=== PATIENT | male | born 1960 | race Caucasian/White ===

== ENCOUNTER 2019-10-01 06:05 | Inpatient (IN) | payer OTHER ==
[2019-09-28 13:05] VITALS: BMI 29.9
[2019-10-01] MEDS ORDERED: BENZOIN TINCTURE SWABSTICK TP ONE (07:09)
[2019-10-01] MEDS ORDERED: HEPARIN NA (PORCINE) 5,000 UNITS/ML 1ML VIAL ONE (07:09)
[2019-10-01] MEDS ORDERED: THROMBIN (BOVINE) 5,000 UNIT VIAL TP ONE ×2 (07:09→10:14)
[2019-10-01] MEDS ORDERED: DEXAMETHASONE SOD PHOSPHATE/PF 10 MG/ML SDV ONE (07:19)
[2019-10-01] MEDS ORDERED: BUPIVACAINE HCL/PF 0.5% (5 MG/ML) 30 ML VIAL IJ ONE (07:20)
[2019-10-01] MEDS ORDERED: PROPOFOL 20 ML ONE ×10 (07:21→11:05)
[2019-10-01] MEDS ORDERED: DEXAMETHASONE SOD PHOSPHATE 4 MG/1 ML VIAL ONE ×2 (07:21→11:00)
[2019-10-01] MEDS ORDERED: fentaNYL CITRATE 250 MCG/5 ML VIAL ONE (07:21)
[2019-10-01] MEDS ORDERED: LIDOCAINE HCL/PF 2% SDV 5ML VIAL ONE (07:21)
[2019-10-01] MEDS ORDERED: LIDOCAINE HCL 4% TOPICAL SOLN (50 ML/BOTTLE) ONE (07:21)
[2019-10-01] MEDS ORDERED: ONDANSETRON 4 MG/2 ML VIAL ONE ×2 (07:21→11:00)
[2019-10-01] MEDS ORDERED: SUCCINYLCHOLINE CHLORIDE 200 MG/10 ML SYRINGE ONE ×2 (07:21→11:04)
[2019-10-01] MEDS ORDERED: ROCURONIUM BROMIDE 50 MG/5 ML SYRINGE ONE ×2 (07:22→11:04)
[2019-10-01] MEDS ORDERED: MIDAZOLAM HCL 2 MG/2 ML SINGLE DOSE VIAL ONE ×4 (07:22→07:23)
[2019-10-01] MEDS ORDERED: EPHEDRINE SULFATE/0.9% NACL/PF 50 MG/10 ML SYRINGE NR ONE (07:24)
[2019-10-01] MEDS ORDERED: BUPIVACAINE LIPOSOME/PF (EXPAREL) 266 MG/20 ML VIAL ONE (08:29)
[2019-10-01] MEDS ORDERED: VANCOMYCIN 1,000 MG VIAL (RESTRICTED TO ID ONLY) IVPB ONE (08:50)
[2019-10-01] MEDS ORDERED: ceFAZolin 2 GRAM PREMIX BAG IVPB ONE (09:15)
[2019-10-01] MEDS ORDERED: NEOSTIGMINE METHYLSULFATE 0.5 MG/1 ML - 10 ML MDV ONE (10:09)
[2019-10-01] MEDS ORDERED: GLYCOPYRROLATE 0.2 MG/1 ML VIAL ONE (10:14)
[2019-10-01] MEDS ORDERED: SODIUM CHLORIDE 0.9% P/F 10 ML VIAL IJ ONE (10:15)
[2019-10-01] MEDS ORDERED: TRANEXAMIC ACID 1000 MG/10 ML VIAL ONE ×2 (10:59→11:00)
--- NOTE | 2019-10-01 12:07 | PN ---
Progress Note (short form) - Note Progress Note: 59M s/p L4 bilateral laminectomies, bilateral L4/L5 facetectomies, L4-L5 posterior instrumented spinal fusion POD #0. -Admit to ICU post-op. -Pain control: NO NSAID's; patient received pre-op TLIP block w/Exparel; OK to use JOB CAPTAIN if needed; transition to oral analgesia post-op. -DVT PPx: -Mechanical only: BRUCE's, SCD's. -Chemical: None. -Incentive spirometry q15 min. -NPO until flatus. -Feranndez care; d/c when ambulating. -Post-op Ancef x 3 doses. -PT/OT/Rehab, OOB. -WBAT B/L LE. -No bending, lifting (>5 lbs), or twisting for 9-12 months. -Care per ICU & medical hospitalist teams. -Discharge planning: f/u 7-10 days after rehab discharge at [facility] office; call for appointment; . -Will follow. Duane Mcgowan MD (Orthopaedic Surgery).
--- NOTE | 2019-10-01 12:09 | OP ---
Operative Note - Note: Operative Date: 10/01/19 Pre-Operative Diagnosis: L4-L5 intervertebral disc disorder with associated spondylosis, spinal stenosis and segmental instability Operation: 1. L4 bilateral laminectomy. 2. L4-L5 bilateral facetectomies. 3. L4-L5 posterior instrumentation. 4. L4-L5 posterolateral arthrodesis. 5. Bone autograft. 6. Bone allograft. 7. Stem cell aspirate autograft 8. Complex wound closure (15cm) Post-Operative Diagnosis: Same as Pre-op Surgeon: Duane Mcgowan Retail Director: Merlin Mcgowan Anesthesiologist/ENVIRONMENTAL SERVICES TECHNICIAN: Eliezer Krause Anesthesia: General Specimens Removed: None Estimated Blood Loss (mls): 300 Blood Volume Replaced (mls): 125 (Cell Saver) Fluid Volume Replaced (mls): 1,000 (Crystalloid) Operative Report Dictated: Yes
[2019-10-01] MEDS ORDERED: ONDANSETRON 4 MG/2 ML VIAL IVPUSH PRN ×2 (12:14→12:22)
[2019-10-01] MEDS ORDERED: LACTATED RINGERS SOLUTION 1,000 ML IV SCH ×2 (12:15→12:30)
--- NOTE | 2019-10-01 12:16 | OP ---
DATE OF OPERATION: DATE OF DICTATION: 10/01/2019 SURGEON: Duane Mcgowan MD SENIOR SVP: Merlin Mcgowan MD PREOPERATIVE DIAGNOSIS: Spinal stenosis and segmental instability L4, 5, lumbar spine. POSTOPERATIVE DIAGNOSIS: L4, 5 spinal stenosis with segmental instability and facet arthropathy. ANESTHESIA: General. ANTIBIOTICS GIVEN: 2 g Ancef, 1 g vancomycin. OPERATIONS PERFORMED: 1. Laminectomy L4 with undercutting facetectomy. 2. Pedicle screw instrumentation L4, 5. 3. Posterolateral arthrodesis L4, 5. 4. Use of biplanar fluoroscopy, intraoperative neuromonitoring. 5. Bone marrow aspirate harvested from left posterior ilium. BLOOD LOSS: 200 mL. ROCEDURE: Patient correctly identified. Brought to the operating room. Placed prone on a Quinten table. Under general anesthesia, all bony points padded. I particularly paid attention to position of table was 6 degrees antiTrendelenburg. In the prone position, once the patient had been prepped, draped in the routine manner with Betadine scrub solution, wiped off with alcohol, DuraPrep applied, and a window drape applied, using a lateral fluoroscopic Xray to isolate the L4, 5 level this for the purpose of correct skin positioning, the dissection was taken through the skin from the tip of the spinous process of L2 to the tip of spinous process of S1. This because of his large size. The dissection was taken to the tip of the spinous process, down the lamina. The fascia was opened. The L4 lamina was identified. Original discussion about an L1-S1 decompression fusion was futile based on the fact that the MRI imaging revealed capacious canal. All disk heights were reasonably well maintained. There were no significant facet arthropathic changes on the MRI, but clearly once we had dissected and exposed the L3-4, 4-5, and 5-1 levels, there were no osteophytes or any malalignment seen at L3-4 or 5-1, but 4-5 was a different story. There was complete facet vertebral subluxation secondary to osteophyte formation. The interspinous ligaments were resected at L3-4 and 4- 5. The lamina of L4 was completely resected. We utilized all the bone from the posterior elements. This posterior bone was morselized in a Midas Owen mill and used for the posterolateral arthrodesis. At that point, the left plane between the subcutaneous fat and fascia was opened. The developed area enabled insertion of a Jamshidi needle into the left ilium, 60 mL of marrow was removed. This spun down from the CD34 cell. Pedicle screws at L4 and 5 were inserted using anatomical guidelines and biplanar fluoroscopy, 4.5 drill was utilized. Each pedicle drill hole was palpated with a ball tip feeler. The screws measured 6 x 45 mm. All screws except the left L5 revealed the presence of normal, good stimulation to each screw, but at L5 initially started with 6, which is 4 mA below what is acceptable, and for that reason, the screw was redirected more laterally and the readings were improved appropriately. Two 40- mm rods were applied to the tulips of the screw heads. They were tightened with the appropriate caps and the final torque device utilized to tighten the caps. The muscle was retracted off the intertransverse plane where the bone had been exposed off the transverse processes left and right-hand side, and this was packed with autologous bone, which was mixed with some BMAC stem cell fluid to bring about stem cell autologous bone grafting. No complications. Muscle was appropriately trimmed with [place] scissors. Closure was a complex closure as follows: Muscle 1 Vicryl, fascia 1 Vicryl, subcutaneous 1 and 2-0 Vicryl in 2 layers, skin 3-0 Monocryl with Steri-Strips. No drainage utilized. The wound was bone dry at the time we left the operating room and closed the sinus. Operation tolerated well. No complications. MD SHIVA Taylor/[id number] MTDD
[2019-10-01] MEDS ORDERED: ACETAMINOPHEN 1000 MG/100 ML VIAL (NON FORMULARY) IVPB ONE (12:33)
[2019-10-01] MEDS ORDERED: HYDROmorphone HCl 2 MG/ML VIAL ONE (13:10)
[2019-10-01] MEDS ORDERED: HYDROmorphone HCl 2 MG/ML VIAL IVPUSH ONE ×2 (13:15→13:28)
[2019-10-01] MEDS ORDERED: HYDROmorphone HCL CARPU-JECT 2 MG/1 ML DISP.SYRIN IVPUSH ONE (13:22)
[2019-10-01] MEDS ORDERED: diazePAM CARPU-JECT 10 MG/2 ML DISP.SYRIN ONE (13:47)
[2019-10-01] MEDS ORDERED: ceFAZolin SODIUM 1 GM VIAL ONE (13:51)
[2019-10-01] MEDS ORDERED: diazePAM CARPU-JECT 10 MG/2 ML DISP.SYRIN IVPUSH ONE (13:56)
[2019-10-01] MEDS ORDERED: ceFAZolin SODIUM 1 GM VIAL IVPB ONE (13:57)
[2019-10-01] MEDS ORDERED: ceFAZolin 2 GRAM PREMIX BAG IVPB SCH (15:00)
--- NOTE | 2019-10-01 16:06 | CONSULT ---
Consultation: REQUESTING PROVIDER: CONSULT REQUEST: ICU HISTORY OF PRESENT ILLNESS: Dangelo Carlisle is a 59yM w PMHx CAD s/p 3 stents presenting from OR with Dr Mcgowan s/p L4 bilateral laminectomies, bilateral L4/L5 facetectomies, L4-L5 posterior instrumented spinal fusion POD #0. Complaining of back pain /. Denies chest pain, SOB. REVIEW OF SYSTEMS: CONSTITUTIONAL: Absent: fever, chills, diaphoresis, malaise HEENT: Absent: rhinorrhea, nasal congestion, throat pain, ear pain, eye pain CARDIOVASCULAR: Absent: chest pain, syncope, palpitations, irregular heart rate, lightheadedness RESPIRATORY: Absent: cough, shortness of breath, orthopnea, wheezing GASTROINTESTINAL: Absent: abdominal pain, abdominal distension, nausea, vomiting GENITOURINARY: Absent: dysuria, frequency, urgency, hesitancy MUSCULOSKELETAL: + back pain Absent: myalgia SKIN: Absent: rash, itching HEMATOLOGIC/IMMUNOLOGIC: Absent: easy bleeding, easy bruising ENDOCRINE: Absent: heat intolerance, cold intolerance NEUROLOGIC: Absent: headache, focal weakness or paresthesias, dizziness, seizure, mental status changes PSYCHIATRIC: Absent: anxiety, depression, suicidal or homicidal ideation PHYSICAL EXAMINATION Vital Signs - 24 hr 10/01/19 10/01/19 10/01/19 06:36 11:54 12:10 Temperature 98.2 F 98.2 F Pulse Rate 62 76 67 Respiratory 18 10 16 Rate Blood Pressure 103/63 83/59 L 97/56 L O2 Sat by Pulse 99 100 Oximetry (%) 10/01/19 10/01/19 10/01/19 12:25 12:40 12:55 Temperature Pulse Rate 77 73 72 Respiratory 19 11 13 Rate Blood Pressure 93/55 L 97/52 L 93/56 L O2 Sat by Pulse 100 100 100 Oximetry (%) 10/01/19 10/01/19 10/01/19 13:10 13:25 13:40 Temperature Pulse Rate 76 63 72 Respiratory 16 12 14 Rate Blood Pressure 93/57 L 93/57 L 91/53 L O2 Sat by Pulse 100 100 100 Oximetry (%) 10/01/19 10/01/19 10/01/19 13:50 13:55 14:05 Temperature 97.9 F Pulse Rate 75 74 74 Respiratory 14 12 12 Rate Blood Pressure 91/53 L 90/55 L 89/52 L O2 Sat by Pulse 100 100 98 Oximetry (%) 10/01/19 10/01/19 14:25 14:35 Temperature 97.9 F 98.4 F Pulse Rate 71 84 Respiratory 16 16 Rate Blood Pressure 94/62 102/68 O2 Sat by Pulse 98 100 Oximetry (%) GENERAL: Awake, alert, and fully oriented, in no acute distress. HEAD: Normal with no signs of trauma. LUNGS: Breath sounds equal, clear to auscultation bilaterally. No wheezes, and no crackles. No accessory muscle use. HEART: Regular rate and rhythm, normal S1 and S2 without murmur, rub or gallop. ABDOMEN: Soft, nontender, not distended, normoactive bowel sounds, no guarding, no rebound, no masses. No hepatomegaly or splenomegaly. MUSCULOSKELETAL: Lumbar-sacral wound non tender, covered with dressing. LOWER EXTREMITIES: 2+ pulses, warm. No peripheral edema. NEUROLOGICAL: AOx3. Normal speech. Laboratory Results - last 24 hr 10/01/19 10/01/19 06:17 07:20 Blood Type A POSITIVE A POSITIVE Antibody Screen Negative Active Medications Generic Name Dose Route Start Last Admin Trade Name Freq PRN Reason Stop Dose Admin Acetaminophen 1,000 mg 10/01/19 18:00 Ofirmev Injection - IVPB 10/02/19 10:01 Q8H [facility] Atorvastatin Calcium 20 mg 10/01/19 22:00 Lipitor - PO HS [facility] Cefazolin Sodium/Dextrose 2 gm 10/01/19 19:30 Ancef 2 Gm Premixed Ivpb - IVPB 10/02/19 07:31 Q6H [facility] Diazepam 10 mg 10/01/19 13:16 Valium - PO 10/04/19 13:18 Q6H PRN MUSCLE SPASMS Duloxetine HCl 60 mg 10/02/19 10:00 Cymbalta - PO DAILY [facility] Fentanyl 50 mcg 10/01/19 12:22 Sublimaze Injection - IVPUSH [id number] PRN PAIN-PACU ORDER X 4 DOSES ONLY Furosemide 20 mg 10/02/19 10:00 Lasix - PO DAILY [facility] Gabapentin 800 mg 10/01/19 14:00 Neurontin - PO TID [facility] Lactated Ringer's 1,000 mls @ 125 mls/hr 10/01/19 12:15 10/01/19 15:19 Lactated Ringers Solution IV 125 mls/hr ASDIR [facility] Administration Lactated Ringer's 1,000 mls @ 125 mls/hr 10/01/19 12:30 10/01/19 15:20 Lactated Ringers Solution IV Not Given ASDIR [facility] Losartan Potassium 25 mg 10/01/19 22:00 Cozaar - PO HS [facility] Metoprolol Tartrate 25 mg 10/01/19 22:00 Lopressor - PO BID [facility] Ondansetron HCl 4 mg 10/01/19 12:14 Zofran Injection IVPUSH Q6H PRN NAUSEA AND/OR VOMITING Ondansetron HCl 4 mg 10/01/19 12:22 Zofran Injection IVPUSH Q6H PRN NAUSEA AND/OR VOMITING Oxycodone HCl 5 mg 10/01/19 16:01 Roxicodone - PO Q4H PRN PAIN LEVEL 7 - 10 Spironolactone 25 mg 10/02/19 10:00 Aldactone - PO DAILY [facility] Ticagrelor 90 mg 10/01/19 22:00 Brilinta - PO BID [facility] Tramadol HCl 50 mg 10/01/19 12:22 Ultram - PO Q3H PRN PAIN LEVEL 1-5 ASSESSMENT/PLAN: 59yM w PMHx CAD s/p 3 stents presenting from OR with Dr Mcgowan s/p L4 bilateral laminectomies, bilateral L4/L5 facetectomies, L4-L5 posterior instrumented spinal fusion POD #0 Ortho - L4 bilateral laminectomies, bilateral L4/L5 facetectomies, L4-L5 posterior instrumented spinal fusion - pending post-op lumbar/sacral XR - PT - WBAT B/L LE. No bending, lifting (>5 lbs), or twisting for 9-12 months. - appreciate ortho recs Neuro - AOx3 - pain control : tylenol, oxycodone, valium, gabapentin, tramadol. No NSAIDs, consider SLOT FLOORPERSON if uncontrolled - nausea: zofran PRN Cards - hx CAD - restarted Lasix, Losartan, Metoprolol, Aldactone, Ticagrelor - DVT ppx Pulm - on 2L NC, wean as tolerated - incentive spirometry GI - NPO - soft diet as tolerated after flatus - IV fluids - I/O Endo - no active issues ID - afebrile, no active issues - ancef x3 post-op Psych - continue duloxetine FEN - LR @ 125mL/hr - no electrolyte disturbances - soft diet as tolerated PPX - SCDs - no GI ppx Dispo - ICU Visit type - Emergency Visit Emergency Visit: Yes ED Registration Date: 10/01/19 Care time: The patient presented to the Emergency Department on the above date and was hospitalized for further evaluation of their emergent condition. - New Patient This patient is new to me today: Yes Date on this admission: 10/01/19 - Critical Care Critical Care patient: Yes Total Critical Care Time (in minutes): 35 Critical Care Statement: The care of this patient involved high complexity decision making to prevent further life threatening deterioration of the patient 's condition and/or to evaluate & treat vital organ system(s) failure or risk of failure. ATTENDING PHYSICIAN STATEMENT I saw and evaluated the patient. I reviewed the resident's note and discussed the case with the resident. I agree with the resident's findings and plan as documented. SUBJECTIVE: OBJECTIVE: ASSESSMENT AND PLAN:
[2019-10-01] MEDS: oxyCODONE HCL 5 MG TABLET PO PRN ×2 (16:09→22:00)
[2019-10-01] MEDS: GABAPENTIN 400 MG CAPSULE (FP) PO SCH ×2 (17:42→21:59)
[2019-10-01] MEDS: ACETAMINOPHEN 1000 MG/100 ML VIAL (NON FORMULARY) IVPB SCH (17:53)
[2019-10-01] MEDS: traMADol HCL 50 MG TABLET PO PRN (20:01)
[2019-10-01] MEDS: ceFAZolin 2 GRAM PREMIX BAG IVPB SCH (20:01)
[2019-10-01] MEDS: METOPROLOL TARTRATE 25 MG TABLET (FP) PO SCH (21:58)
[2019-10-01] MEDS: ATORVASTATIN CA 20 MG TABLET (FP) PO SCH (21:58)
[2019-10-01] MEDS: LOSARTAN POTASSIUM 25 MG TABLET PO SCH (21:58)
[2019-10-01] MEDS: TICAGRELOR 90 MG TABLET PO SCH (21:58)
[2019-10-01] MEDS: diazePAM 5 MG TABLET PO PRN (22:01)
[2019-10-02] MEDS: ceFAZolin 2 GRAM PREMIX BAG IVPB SCH ×2 (00:42→07:03)
[2019-10-02] MEDS: ACETAMINOPHEN 1000 MG/100 ML VIAL (NON FORMULARY) IVPB SCH ×2 (01:45→09:42)
[2019-10-02] MEDS: oxyCODONE HCL 5 MG TABLET PO PRN ×5 (02:04→21:12)
[2019-10-02] MEDS: GABAPENTIN 400 MG CAPSULE (FP) PO SCH ×3 (06:01→21:12)
[2019-10-02] MEDS: diazePAM 5 MG TABLET PO PRN ×3 (06:11→17:50)
[2019-10-02 06:21] LABS: HEMOGLOBIN 12.1 GM/dL (11.7-16.9); MCH 30.7 pg (25.7-33.7); MCHC 34.4 g/dl (32.0-35.9); MEAN PLT VOLUME 7.3 fl (7.5-11.1); PLATELET COUNT 213 K/MM3 (134-434); RBC 3.93 M/mm3 (4.00-5.60); RDW 13.6 % (11.9-15.9); WHITE BLOOD COUNT 17.7 K/mm3 (4.0-10.0)
[2019-10-02 06:56] LABS: ALBUMIN 3.2 g/dl (3.4-5.0); BILIRUBIN,TOTAL 0.5 mg/dL (0.2-1); BLOOD UREA NITROGEN 15.1 mg/dL (7-18); CALCIUM 8.3 mg/dL (8.5-10.1); PHOSPHOROUS 3.3 mg/dL (2.5-4.9); POTASSIUM 4.9 mmol/L (3.5-5.1); TOT PROT 5.7 g/dl (6.4-8.2)
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
[2019-10-02] MEDS: METOPROLOL TARTRATE 25 MG TABLET (FP) PO SCH ×2 (09:18→21:11)
[2019-10-02] MEDS ORDERED: PT OWN MED DRAWER 7, Y5N ONE (09:24)
[2019-10-02] MEDS: TICAGRELOR 90 MG TABLET PO SCH ×2 (09:25→21:14)
[2019-10-02] MEDS ORDERED: FUROSEMIDE 20 MG TABLET (FP) PO SCH (10:00)
[2019-10-02] MEDS ORDERED: DULoxetine HCL 30 MG CAPSULE.DR PO SCH (10:00)
[2019-10-02] MEDS ORDERED: SPIRONOLACTONE 25 MG TABLET (FP) PO SCH (10:00)
--- NOTE | 2019-10-02 11:27 | PN ---
Teaching Attending Note Name of Resident: Norm Gómez ATTENDING PHYSICIAN STATEMENT I saw and evaluated the patient. I reviewed the resident's note and discussed the case with the resident. I agree with the resident's findings and plan as documented. SUBJECTIVE: Patient seen and examined in the ICU. Post-op pain: 07/07. No CP or SOB. Intake & Output 09/30/19 09/30/19 10/01/19 10/02/19 00:59 23:59 23:59 23:59 Intake Total 1975 925 Output Total 1000 1800 Balance 975 -875 Weight 240 lb 266 lb 12.8 oz Last Vital Signs Temp Pulse Resp BP Pulse Ox 98.1 F 64 10 97/66 100 10/02/19 06:00 10/02/19 06:00 10/02/19 09:00 10/02/19 06:00 10/02/19 09:00 Active Medications Atorvastatin Calcium (Lipitor -) 20 mg PO [facility] Last Admin: 10/01/19 21:58 Dose: 20 mg Diazepam (Valium -) 10 mg PO Q6H PRN PRN Reason: MUSCLE SPASMS Stop: 10/04/19 13:18 Last Admin: 10/02/19 06:11 Dose: 10 mg Duloxetine HCl (Cymbalta -) 60 mg PO DAILY [facility] Last Admin: 10/02/19 09:18 Dose: 60 mg Fentanyl (Sublimaze Injection -) 50 mcg IVPUSH [id number] PRN PRN Reason: PAIN-PACU ORDER X 4 DOSES ONLY Furosemide (Lasix -) 20 mg PO DAILY [facility] Last Admin: 10/02/19 09:18 Dose: 20 mg Gabapentin (Neurontin -) 800 mg PO TID [facility] Last Admin: 10/02/19 06:01 Dose: 800 mg Lactated Ringer's (Lactated Ringers Solution) 1,000 mls @ 125 mls/hr IV ASDIR [facility] Last Admin: 10/01/19 15:19 Dose: 125 mls/hr Lactated Ringer's (Lactated Ringers Solution) 1,000 mls @ 125 mls/hr IV ASDIR [facility] Last Admin: 10/01/19 15:20 Dose: Not Given Losartan Potassium (Cozaar -) 25 mg PO HS [facility] Last Admin: 10/01/19 21:58 Dose: 25 mg Metoprolol Tartrate (Lopressor -) 25 mg PO BID [facility] Last Admin: 10/02/19 09:18 Dose: 25 mg Ondansetron HCl (Zofran Injection) 4 mg IVPUSH Q6H PRN PRN Reason: NAUSEA AND/OR VOMITING Ondansetron HCl (Zofran Injection) 4 mg IVPUSH Q6H PRN PRN Reason: NAUSEA AND/OR VOMITING Oxycodone HCl (Roxicodone -) 5 mg PO Q4H PRN PRN Reason: PAIN LEVEL 7 - 10 Last Admin: 10/02/19 06:02 Dose: 5 mg Spironolactone (Aldactone -) 25 mg PO DAILY [facility] Last Admin: 10/02/19 09:18 Dose: 25 mg Ticagrelor (Brilinta -) 90 mg PO BID [facility] Last Admin: 10/02/19 09:25 Dose: 90 mg Tramadol HCl (Ultram -) 50 mg PO Q3H PRN PRN Reason: PAIN LEVEL 1-5 Last Admin: 10/01/19 20:01 Dose: 50 mg GENERAL: Awake, alert, and fully oriented, in no acute distress. HEAD: Normal with no signs of trauma. LUNGS: Breath sounds equal, clear to auscultation bilaterally. No wheezes, and no crackles. No accessory muscle use. HEART: Regular rate and rhythm, normal S1 and S2 without murmur, rub or gallop. ABDOMEN: Soft, nontender, not distended, normoactive bowel sounds, no guarding, no rebound, no masses. No hepatomegaly or splenomegaly. MUSCULOSKELETAL: Lumbar-sacral wound non tender, covered with dressing. LOWER EXTREMITIES: 2+ pulses, warm. No peripheral edema. NEUROLOGICAL: AOx3. Normal speech. Laboratory Results - last 24 hr 10/02/19 10/02/19 05:50 05:50 WBC 17.7 H RBC 3.93 L Hgb 12.1 Hct 35.0 L MCV 89.0 MCH 30.7 MCHC 34.4 RDW 13.6 Plt Count 213 MPV 7.3 L Sodium 139 Potassium 4.9 Chloride 105 Carbon Dioxide 31 Anion Gap 3 L BUN 15.1 Creatinine 1.0 Est GFR (CKD-EPI)AfAm 95.06 Est GFR (CKD-EPI)NonAf 82.02 Random Glucose 100 Calcium 8.3 L Phosphorus 3.3 Magnesium 2.0 Total Bilirubin 0.5 AST 25 ALT 29 Alkaline Phosphatase 55 Total Protein 5.7 L Albumin 3.2 L ASSESSMENT/PLAN: POD #1: 1. L4 bilateral laminectomy. 2. L4-L5 bilateral facetectomies. 3. L4-L5 posterior instrumentation. 4. L4-L5 posterolateral arthrodesis. 5. Bone autograft. 6. Bone allograft. 7. Stem cell aspirate autograft 8. Complex wound closure (15cm) CAD S/P PCI x 3 PO as tolerated O2 as needed Incentive Spirometry Pain control PT / mobility per Orthopedics Restart Cardiac meds VTE prophylaxis Dr Greene
[2019-10-02] MEDS ORDERED: LACTATED RINGERS SOLUTION 1,000 ML IV SCH (11:41)
--- NOTE | 2019-10-02 11:48 | PN ---
Physical Exam: SUBJECTIVE: Patient seen and examined at bedside this morning. States that his pain is well controlled after morning medications. He is in good spirits. He is passing gas and belching, able to tolerate diet. No bowel movements as of this morning. No events overnight. OBJECTIVE: Vital Signs Period Temp Pulse Resp BP Sys/Sharma Pulse Ox Last 24 Hr 97.9 F-98.6 F 63-84 10-20 83-120/52-71 98-100 GENERAL: The patient is awake, alert, and fully oriented, in no acute distress. HEAD: Normal with no signs of trauma. EYES: PERRL, EOMI ENT: moist mucous membranes NECK: Trachea midline, full range of motion, supple. LUNGS: Breath sounds equal, clear to auscultation bilaterally, no wheezes, no crackles, no accessory muscle use. HEART: Regular rate and rhythm, S1, S2 without murmur, rub or gallop. ABDOMEN: Soft, nontender, nondistended, normoactive bowel sounds, no guarding EXTREMITIES: 2+ pulses, warm, well-perfused, no edema. NEUROLOGICAL: Cranial nerves II through XII grossly intact. Sensation grossly normal throughout. Normal speech, gait not observed. PSYCH: Normal mood, normal affect. SKIN: Warm, dry, normal turgor, no rashes or lesions noted Laboratory Results - last 24 hr 10/02/19 10/02/19 05:50 05:50 WBC 17.7 H RBC 3.93 L Hgb 12.1 Hct 35.0 L MCV 89.0 MCH 30.7 MCHC 34.4 RDW 13.6 Plt Count 213 MPV 7.3 L Sodium 139 Potassium 4.9 Chloride 105 Carbon Dioxide 31 Anion Gap 3 L BUN 15.1 Creatinine 1.0 Est GFR (CKD-EPI)AfAm 95.06 Est GFR (CKD-EPI)NonAf 82.02 Random Glucose 100 Calcium 8.3 L Phosphorus 3.3 Magnesium 2.0 Total Bilirubin 0.5 AST 25 ALT 29 Alkaline Phosphatase 55 Total Protein 5.7 L Albumin 3.2 L Active Medications Generic Name Dose Route Start Last Admin Trade Name Freq PRN Reason Stop Dose Admin Atorvastatin Calcium 20 mg 10/01/19 22:00 10/01/19 21:58 Lipitor - PO 20 mg HS CIRA Administration Diazepam 10 mg 10/01/19 13:16 10/02/19 11:37 Valium - PO 10/04/19 13:18 10 mg Q6H PRN Administration MUSCLE SPASMS Duloxetine HCl 60 mg 10/02/19 10:00 10/02/19 09:18 Cymbalta - PO 60 mg DAILY CIRA Administration Fentanyl 50 mcg 10/01/19 12:22 Sublimaze Injection - IVPUSH [id number] PRN PAIN-PACU ORDER X 4 DOSES ONLY Furosemide 20 mg 10/02/19 10:00 10/02/19 09:18 Lasix - PO 20 mg DAILY CIRA Administration Gabapentin 800 mg 10/01/19 14:00 10/02/19 06:01 Neurontin - PO 800 mg TID CIRA Administration Lactated Ringer's 1,000 mls @ 125 mls/hr 10/01/19 12:15 10/01/19 15:19 Lactated Ringers Solution IV 125 mls/hr ASDIR CIRA Administration Lactated Ringer's 1,000 mls @ 75 mls/hr 10/02/19 11:41 Lactated Ringers Solution IV ASDIR CIRA Losartan Potassium 25 mg 10/01/19 22:00 10/01/19 21:58 Cozaar - PO 25 mg HS CIRA Administration Metoprolol Tartrate 25 mg 10/01/19 22:00 10/02/19 09:18 Lopressor - PO 25 mg BID CIRA Administration Ondansetron HCl 4 mg 10/01/19 12:14 Zofran Injection IVPUSH Q6H PRN NAUSEA AND/OR VOMITING Ondansetron HCl 4 mg 10/01/19 12:22 Zofran Injection IVPUSH Q6H PRN NAUSEA AND/OR VOMITING Oxycodone HCl 5 mg 10/01/19 16:01 10/02/19 11:38 Roxicodone - PO 5 mg Q4H PRN Administration PAIN LEVEL 7 - 10 Spironolactone 25 mg 10/02/19 10:00 10/02/19 09:18 Aldactone - PO 25 mg DAILY CIRA Administration Ticagrelor 90 mg 10/01/19 22:00 10/02/19 09:25 Brilinta - PO 90 mg BID CIRA Administration Tramadol HCl 50 mg 10/01/19 12:22 10/01/19 20:01 Ultram - PO 50 mg Q3H PRN Administration PAIN LEVEL 1-5 ASSESSMENT/PLAN: 59 y/o/m with PMHx of CAD s/p 3 stents presenting from OR with Dr Mcgowan s/p L4 bilateral laminectomies, bilateral L4/L5 facetectomies, L4-L5 posterior instrumented spinal fusion, POD #1. #Ortho - post-op lumbar/sacral XR completed, pending read - PT consulted - WBAT B/L LE. No bending, lifting (>5 lbs), or twisting for 9-12 months - appreciate ortho recs #Neuro - AOx3 - pain control : tylenol, oxycodone, valium, gabapentin, tramadol. No NSAIDs, consider [employer] if uncontrolled - nausea: zofran PRN #Cards - hx CAD s/p 3 stents - restarted Lasix, Losartan, Metoprolol, Aldactone, Ticagrelor #Pulm - on 2L NC, wean as tolerated - encourage incentive spirometry #GI - advance diet as tolerated, passing gas # - IV fluids - I/Os #Endo - no active issues #ID - afebrile, no active issues - ancef x3 post-op given #Psych - continue duloxetine #FEN - LR @ 75mL/hr. Patient tolerating diet well, may D/C fluids if ok with Dr. Mcgowan - no electrolyte disturbances - advance diet as tolerated #PPX - SCDs - no GI ppx #Dispo - Patient stable for transfer to floors. Will speak with Dr. Mcgowan before transferring patient. Visit type - Emergency Visit Emergency Visit: No - New Patient This patient is new to me today: Yes Date on this admission: 10/02/19 - Critical Care Critical Care patient: Yes Total Critical Care Time (in minutes): 36 Critical Care Statement: The care of this patient involved high complexity decision making to prevent further life threatening deterioration of the patient 's condition and/or to evaluate & treat vital organ system(s) failure or risk of failure. ATTENDING PHYSICIAN STATEMENT I saw and evaluated the patient. I reviewed the resident's note and discussed the case with the resident. I agree with the resident's findings and plan as documented. SUBJECTIVE: OBJECTIVE: ASSESSMENT AND PLAN:
--- NOTE | 2019-10-02 12:24 | PN ---
Teaching Attending Note Name of Resident: Lorin Castano ATTENDING PHYSICIAN STATEMENT I saw and evaluated the patient. I reviewed the resident's note and discussed the case with the resident. I agree with the resident's findings and plan as documented with exceptions below. SUBJECTIVE: 59 yom with PMHx of CAD s/p LA/PCI x3 in 09/2018, Depression, low back pain since reported accident in 12/2017, s/p elective L spine surgery with Dr. Mcgowan on 10/01/2019. patient reports pain with movements currently but contolled with medications. Has been passing flatus and tolerating diet well. No chest pain or complaints otherwise. OBJECTIVE: Vital Signs Period Temp Pulse Resp BP Sys/Sharma Pulse Ox Last 24 Hr 97.9 F-98.6 F 63-84 10-20 89-125/52-74 98-100 Intake & Output 09/30/19 09/30/19 10/01/19 10/02/19 00:59 23:59 23:59 23:59 Intake Total 1975 1495 Output Total 1000 1800 Balance 975 -305 Weight 240 lb 266 lb 12.8 oz GENERAL: Awake, alert, and fully oriented, in no acute distress. HEAD: Normal with no signs of trauma. EYES: Pupils equal, round and reactive to light, extraocular movements intact, sclera anicteric, conjunctiva clear. No lid lag. EARS, NOSE, THROAT: Ears normal, nares patent, oropharynx clear without exudates. Moist mucous membranes. NECK: Normal range of motion, supple, no JVD LUNGS: Breath sounds equal, clear to auscultation bilaterally. No wheezes, and no crackles. No accessory muscle use. HEART: Regular rate and rhythm, normal S1 and S2 ABDOMEN: Soft, nontender, not distended, normoactive bowel sounds, no guarding, no rebound, no masses, mcghee in place. MUSCULOSKELETAL: Lumbar spine dressing clean, no surrounding erythema/swelling noted UPPER EXTREMITIES: 2+ pulses, warm, well-perfused. No cyanosis. No clubbing. No peripheral edema. LOWER EXTREMITIES: 2+ pulses, warm, well-perfused. No calf tenderness. No peripheral edema. NEUROLOGICAL: AAOx3, facial symmetry, moves all extremities PSYCHIATRIC: Cooperative. Good eye contact. Appropriate mood and affect. SKIN: Warm, dry, normal turgor, no rashes or lesions noted, normal capillary refill. Home Medications Medication Instructions Recorded Aspirin [Aspirin EC] 81 mg PO DAILY 09/28/19 Cyclobenzaprine HCl 10 mg PO BID 09/28/19 Duloxetine HCl 60 mg PO DAILY 09/28/19 Furosemide 20 mg PO DAILY 09/28/19 Gabapentin 800 mg PO TID 09/28/19 Losartan Potassium 25 mg PO HS 09/28/19 Metoprolol Tartrate 25 mg PO BID 09/28/19 Spironolactone 25 mg PO DAILY 09/28/19 Ticagrelor [Brilinta] 90 mg PO BID 09/28/19 Acetaminophen [Tylenol -] 500 mg PO PRN 10/01/19 Atorvastatin Ca [Lipitor] 1 tab PO HS 10/01/19 Active Medications Atorvastatin Calcium (Lipitor -) 20 mg PO HS [facility] Last Admin: 10/01/19 21:58 Dose: 20 mg Diazepam (Valium -) 10 mg PO Q6H PRN PRN Reason: MUSCLE SPASMS Stop: 10/04/19 13:18 Last Admin: 10/02/19 11:37 Dose: 10 mg Duloxetine HCl (Cymbalta -) 60 mg PO DAILY [facility] Last Admin: 10/02/19 09:18 Dose: 60 mg Fentanyl (Sublimaze Injection -) 50 mcg IVPUSH [id number] PRN PRN Reason: PAIN-PACU ORDER X 4 DOSES ONLY Furosemide (Lasix -) 20 mg PO DAILY [facility] Last Admin: 10/02/19 09:18 Dose: 20 mg Gabapentin (Neurontin -) 800 mg PO TID [facility] Last Admin: 10/02/19 06:01 Dose: 800 mg Lactated Ringer's (Lactated Ringers Solution) 1,000 mls @ 75 mls/hr IV ASDIR [facility] Last Admin: 10/02/19 12:02 Dose: 75 mls/hr Losartan Potassium (Cozaar -) 25 mg PO HS [facility] Last Admin: 10/01/19 21:58 Dose: 25 mg Metoprolol Tartrate (Lopressor -) 25 mg PO BID [facility] Last Admin: 10/02/19 09:18 Dose: 25 mg Ondansetron HCl (Zofran Injection) 4 mg IVPUSH Q6H PRN PRN Reason: NAUSEA AND/OR VOMITING Ondansetron HCl (Zofran Injection) 4 mg IVPUSH Q6H PRN PRN Reason: NAUSEA AND/OR VOMITING Oxycodone HCl (Roxicodone -) 5 mg PO Q4H PRN PRN Reason: PAIN LEVEL 7 - 10 Last Admin: 10/02/19 11:38 Dose: 5 mg Spironolactone (Aldactone -) 25 mg PO DAILY [facility] Last Admin: 10/02/19 09:18 Dose: 25 mg Ticagrelor (Brilinta -) 90 mg PO BID [facility] Last Admin: 10/02/19 09:25 Dose: 90 mg Tramadol HCl (Ultram -) 50 mg PO Q3H PRN PRN Reason: PAIN LEVEL 1-5 Last Admin: 10/01/19 20:01 Dose: 50 mg Laboratory Results - last 24 hr 10/02/19 10/02/19 05:50 05:50 WBC 17.7 H RBC 3.93 L Hgb 12.1 Hct 35.0 L MCV 89.0 MCH 30.7 MCHC 34.4 RDW 13.6 Plt Count 213 MPV 7.3 L Sodium 139 Potassium 4.9 Chloride 105 Carbon Dioxide 31 Anion Gap 3 L BUN 15.1 Creatinine 1.0 Est GFR (CKD-EPI)AfAm 95.06 Est GFR (CKD-EPI)NonAf 82.02 Random Glucose 100 Calcium 8.3 L Phosphorus 3.3 Magnesium 2.0 Total Bilirubin 0.5 AST 25 ALT 29 Alkaline Phosphatase 55 Total Protein 5.7 L Albumin 3.2 L ASSESSMENT AND PLAN: 59 yom with PMHx of CAD s/p LA/PCI x3 in 09/2018, Depression, low back pain with L4-L5 intervertebral disc disorder with associated spondylosis, spinal stenosis and segmental instability s/p spinal surgery. -L4-L5 intervertebral disc disorder with associated spondylosis, spinal stenosis and segmental instability s/p L4 bilateral laminectomy/L4-L5 bilateral facetectomies/L4-L5 posterior instrumentation/L4-L5 posterolateral arthrodesis/ Bone autograft/Bone allograft/Stem cell aspirate autograft/Complex wound closure (15cm) on 10/01/2019 -Leucocytosis, suspect stress induced, monitor for infection -CAD s/p LA/PCI x 3 in 09/2018 -Depression -HTN -HLD Plan: Tolerating PO. Pain control/DVTPPX/wound care/ASA resumption per Dr. Mcgowan. Continue Brillilanta per Dr. Mcgowan/outpatient Cardiology recs. Continue statin/lasix/losartan/metoprolol/spironolactone. D/c mcghee once ambulating PT eval/Incentive spirometry. ICU level of care Dispo Home with services vs SNF based on clinical course. Discussed with patient. Total critical care time spent 36 min. Critical Care Total Critical Care Time (in minutes): 36 Critical Care Statement: The care of this patient involved high complexity decision making to prevent further life threatening deterioration of the patient 's condition and/or to evaluate & treat vital organ system(s) failure or risk of failure.
--- NOTE | 2019-10-02 14:58 | PN ---
Progress Note (short form) - Note Progress Note: Post op day#1.S/p L5-S1 Decompression with fusion under GA with bilateral TLIP block uneventful.P 75,BP 113/61 and Spo2 100 on O2 2l NC.Patient stable and c/o pain score of 3-4/10 on moving.As of now he is doing fine.
[2019-10-02] MEDS: traMADol HCL 50 MG TABLET PO PRN (15:19)
[2019-10-02] MEDS: ATORVASTATIN CA 20 MG TABLET (FP) PO SCH (21:11)
[2019-10-02] MEDS: LOSARTAN POTASSIUM 25 MG TABLET PO SCH (21:11)
[2019-10-03] MEDS: diazePAM 5 MG TABLET PO PRN ×3 (02:00→21:05)
[2019-10-03] MEDS: traMADol HCL 50 MG TABLET PO PRN ×2 (02:00→17:56)
[2019-10-03] MEDS ORDERED: traMADol HCL 50 MG TABLET PO PRN ×2 (02:59→09:59)
[2019-10-03] MEDS ORDERED: oxyCODONE HCL 5 MG TABLET PO PRN (02:59)
[2019-10-03] MEDS ORDERED: ONDANSETRON 4 MG/2 ML VIAL IVPUSH PRN ×2 (02:59)
[2019-10-03] MEDS: GABAPENTIN 400 MG CAPSULE (FP) PO SCH ×3 (06:46→21:02)
[2019-10-03 08:02] LABS: HEMATOCRIT 34.6 % (35.4-49); MCH 30.9 pg (25.7-33.7); MCHC 34.7 g/dl (32.0-35.9); MEAN CELL VOLUME 89.1 fl (80-96); MEAN PLT VOLUME 7.6 fl (7.5-11.1); PLATELET COUNT 191 K/MM3 (134-434); RBC 3.88 M/mm3 (4.00-5.60); RDW 13.7 % (11.9-15.9); WHITE BLOOD COUNT 11.8 K/mm3 (4.0-10.0)
[2019-10-03 08:36] LABS: ALBUMIN 3.2 g/dl (3.4-5.0); BILIRUBIN,TOTAL 0.9 mg/dL (0.2-1); BLOOD UREA NITROGEN 14.8 mg/dL (7-18); CALCIUM 8.2 mg/dL (8.5-10.1); CREATININE 0.9 mg/dL (0.55-1.3); MAGNESIUM 1.8 mg/dL (1.8-2.4); PHOSPHOROUS 2.1 mg/dL (2.5-4.9); POTASSIUM 4.2 mmol/L (3.5-5.1); TOT PROT 5.7 g/dl (6.4-8.2)
[2019-10-03] MEDS ORDERED: PT OWN MED DRAWER 7, Y5N ONE ×2 (10:28→20:48)
[2019-10-03] MEDS: TICAGRELOR 90 MG TABLET PO SCH ×2 (10:49→21:01)
[2019-10-03] MEDS: DULoxetine HCL 30 MG CAPSULE.DR PO SCH (10:50)
[2019-10-03] MEDS: METOPROLOL TARTRATE 25 MG TABLET (FP) PO SCH ×2 (10:50→21:02)
[2019-10-03] MEDS: DOCUSATE SODIUM 100 MG CAPSULE (FP) PO SCH ×2 (10:50→21:01)
[2019-10-03] MEDS: SPIRONOLACTONE 25 MG TABLET (FP) PO SCH (10:50)
[2019-10-03] MEDS: FUROSEMIDE 20 MG TABLET (FP) PO SCH (10:50)
[2019-10-03] MEDS ORDERED: ACETAMINOPHEN 325 MG TABLET (FP) PO ONE (13:08)
--- NOTE | 2019-10-03 13:42 | PN ---
Physical Exam: SUBJECTIVE: Patient seen and examined. Pt fell overnight when getting up to go to the bathroom. He states that he tripped over his SCDs. He did not hit his head or any parts of his body and denies any pain from fall. Pt has been tolerating diet well, passing flatus, but no BM. Spiked a fever of 102 in afternoon. Back and leg pain is controlled. OBJECTIVE: Vital Signs Period Temp Pulse Resp BP Sys/Sharma Pulse Ox Last 24 Hr 98.4 F-102.1 F 74-98 14-20 106-133/47-74 GENERAL: The patient is awake, alert, and fully oriented, in no acute distress. HEAD: Normal with no signs of trauma. EYES: PERRL, extraocular movements intact, sclera anicteric, conjunctiva clear. No ptosis. ENT: Ears normal, nares patent, oropharynx clear without exudates, moist mucous membranes. NECK: Trachea midline, full range of motion, supple. LUNGS: Breath sounds equal, clear to auscultation bilaterally, no wheezes, no crackles, no accessory muscle use. HEART: Regular rate and rhythm, S1, S2 without murmur, rub or gallop. ABDOMEN: Soft, nontender, nondistended, normoactive bowel sounds, no guarding, no rebound, no hepatosplenomegaly, no masses. EXTREMITIES: 2+ pulses, warm, well-perfused, no edema. 4/5 strength BL 2/2 pain NEUROLOGICAL: Cranial nerves II through XII grossly intact. Normal speech, gait not observed. PSYCH: Normal mood, normal affect. SKIN: Warm, dry, normal turgor, no rashes or lesions noted. Surgical dressing clean, dry, intact. No bleeding or purulent discharge Laboratory Results - last 24 hr 10/03/19 10/03/19 06:35 06:35 WBC 11.8 H RBC 3.88 L Hgb 12.0 Hct 34.6 L MCV 89.1 MCH 30.9 MCHC 34.7 RDW 13.7 Plt Count 191 MPV 7.6 Sodium 137 Potassium 4.2 Chloride 102 Carbon Dioxide 31 Anion Gap 4 L BUN 14.8 Creatinine 0.9 Est GFR (CKD-EPI)AfAm 107.97 Est GFR (CKD-EPI)NonAf 93.16 Random Glucose 87 Calcium 8.2 L Phosphorus 2.1 L Magnesium 1.8 Total Bilirubin 0.9 AST 27 ALT 22 Alkaline Phosphatase 53 Total Protein 5.7 L Albumin 3.2 L Active Medications Atorvastatin Calcium (Lipitor -) 20 mg PO HS [facility] Diazepam (Valium -) 10 mg PO Q6H PRN PRN Reason: MUSCLE SPASMS Stop: 10/04/19 13:18 Last Admin: 10/03/19 11:27 Dose: 10 mg Docusate Sodium (Colace -) 100 mg PO BID [facility] Last Admin: 10/03/19 10:50 Dose: 100 mg Duloxetine HCl (Cymbalta -) 60 mg PO DAILY [facility] Last Admin: 10/03/19 10:50 Dose: 60 mg Fentanyl (Sublimaze Injection -) 50 mcg IVPUSH [id number] PRN PRN Reason: PAIN-PACU ORDER X 4 DOSES ONLY Furosemide (Lasix -) 20 mg PO DAILY [facility] Last Admin: 10/03/19 10:50 Dose: 20 mg Gabapentin (Neurontin -) 800 mg PO TID [facility] Last Admin: 10/03/19 13:12 Dose: 800 mg Losartan Potassium (Cozaar -) 25 mg PO [facility] Metoprolol Tartrate (Lopressor -) 25 mg PO BID [facility] Last Admin: 10/03/19 10:50 Dose: 25 mg Ondansetron HCl (Zofran Injection) 4 mg IVPUSH Q6H PRN PRN Reason: NAUSEA AND/OR VOMITING Senna (Senna -) 1 tab PO [facility] Spironolactone (Aldactone -) 25 mg PO DAILY [facility] Last Admin: 10/03/19 10:50 Dose: 25 mg Ticagrelor (Brilinta -) 90 mg PO BID [facility] Last Admin: 10/03/19 10:49 Dose: 90 mg Tramadol HCl (Ultram -) 50 mg PO Q6H PRN PRN Reason: PAIN LEVEL 6-10 ASSESSMENT/PLAN: Patient is a 59 year old male with PMH of CAD (s/p 3 stents on 09/2018), depression presents in the ICU for post-op care s/p L4 b/l laminectomies, L4/L5 facetectomies, L4-L5 posterior instrumental spinal fusion, POD #2 #S/p L4-L5 laminectomies, facetectomies, posterior instrumental spinal fusion, POD#2 Pain control: Ultram 50mg Q6, valium 10mg Q6H, neurontin 800mg TID. D/c'ed oxy PT eval: ambulating well with rolling walker, minimal pain WBAT B/L LE. No bending, lifting (>5 lbs), or twisting for 9-12 months. Incentive spirometry Pain control per anesthesia Zofran PRN for nausea Fernandez d/c'ed #Fever 102.1, confusion Likely 2/[address] head neg F/u CXR, UA, urine cx, blood cx #CAD (s/p 3 stent placement) Cont home meds: Lipitor 20mg, Losartan 25mg, Spironolactone 25mg, Metoprolol 25mg BID, Ticagrelor 90mg BID #Depression Cont home med: Duloxetine 60mg #DVT ppx SCDs #FEN No fluids Cholesterol/Fat controlled diet #Dispo Monitor on med-surg Visit type - Emergency Visit Emergency Visit: No - New Patient This patient is new to me today: No - Critical Care Critical Care patient: No ATTENDING PHYSICIAN STATEMENT I saw and evaluated the patient. I reviewed the resident's note and discussed the case with the resident. I agree with the resident's findings and plan as documented. SUBJECTIVE: OBJECTIVE: ASSESSMENT AND PLAN:
--- NOTE | 2019-10-03 15:12 | PN ---
Teaching Attending Note Name of Resident: Cintia Adame ATTENDING PHYSICIAN STATEMENT I saw and evaluated the patient. I reviewed the resident's note and discussed the case with the resident. I agree with the resident's findings and plan as documented with exceptions below. SUBJECTIVE: Patient seen and examined. Fall overnight, when fell on his knees and "sprawled ". Denies any new back pain, leg weakness/tingling or numbness. No new cough, fevers/chills, abdominal or urinary concerns. OBJECTIVE: Vital Signs Period Temp Pulse Resp BP Sys/Sharma Pulse Ox Last 24 Hr 98.4 F-102.1 F 78-98 14-20 106-133/47-74 Intake & Output 09/30/19 10/01/19 10/02/19 10/03/19 23:59 23:59 23:59 23:59 Intake Total 1975 2170 600 Output Total 1000 4600 1800 Balance 975 -2430 -1200 Weight 240 lb 266 lb 12.8 oz 254 lb 1.6 oz General: sitting at edge of bed, no acute distress Chest: CTAB, no rales or wheezing Abdomen:soft, NT, nD Extremities: no edema Musculoskeletal :clean back dressing, no surrounding erythema/swelling or discharge noted, LE power 5/5, sensation intact and symmetric to light touch Home Medications Medication Instructions Recorded Aspirin [Aspirin EC] 81 mg PO DAILY 09/28/19 Cyclobenzaprine HCl 10 mg PO BID 09/28/19 Duloxetine HCl 60 mg PO DAILY 09/28/19 Furosemide 20 mg PO DAILY 09/28/19 Gabapentin 800 mg PO TID 09/28/19 Losartan Potassium 25 mg PO HS 09/28/19 Metoprolol Tartrate 25 mg PO BID 09/28/19 Spironolactone 25 mg PO DAILY 09/28/19 Ticagrelor [Brilinta] 90 mg PO BID 09/28/19 Acetaminophen [Tylenol -] 500 mg PO PRN 10/01/19 Atorvastatin Ca [Lipitor] 1 tab PO HS 10/01/19 Active Medications Acetaminophen (Tylenol -) 650 mg PO Q6H PRN PRN Reason: FEVER Atorvastatin Calcium (Lipitor -) 20 mg PO HS [facility] Diazepam (Valium -) 10 mg PO Q6H PRN PRN Reason: MUSCLE SPASMS Stop: 10/04/19 13:18 Last Admin: 10/03/19 11:27 Dose: 10 mg Docusate Sodium (Colace -) 100 mg PO BID [facility] Last Admin: 10/03/19 10:50 Dose: 100 mg Duloxetine HCl (Cymbalta -) 60 mg PO DAILY [facility] Last Admin: 10/03/19 10:50 Dose: 60 mg Fentanyl (Sublimaze Injection -) 50 mcg IVPUSH [id number] PRN PRN Reason: PAIN-PACU ORDER X 4 DOSES ONLY Furosemide (Lasix -) 20 mg PO DAILY [facility] Last Admin: 10/03/19 10:50 Dose: 20 mg Gabapentin (Neurontin -) 800 mg PO TID [facility] Last Admin: 10/03/19 13:12 Dose: 800 mg Losartan Potassium (Cozaar -) 25 mg PO HS [facility] Metoprolol Tartrate (Lopressor -) 25 mg PO BID [facility] Last Admin: 10/03/19 10:50 Dose: 25 mg Ondansetron HCl (Zofran Injection) 4 mg IVPUSH Q6H PRN PRN Reason: NAUSEA AND/OR VOMITING Senna (Senna -) 1 tab PO HS [facility] Spironolactone (Aldactone -) 25 mg PO DAILY [facility] Last Admin: 10/03/19 10:50 Dose: 25 mg Ticagrelor (Brilinta -) 90 mg PO BID [facility] Last Admin: 10/03/19 10:49 Dose: 90 mg Tramadol HCl (Ultram -) 50 mg PO Q6H PRN PRN Reason: PAIN LEVEL 6-10 Laboratory Results - last 24 hr 10/03/19 10/03/19 06:35 06:35 WBC 11.8 H RBC 3.88 L Hgb 12.0 Hct 34.6 L MCV 89.1 MCH 30.9 MCHC 34.7 RDW 13.7 Plt Count 191 MPV 7.6 Sodium 137 Potassium 4.2 Chloride 102 Carbon Dioxide 31 Anion Gap 4 L BUN 14.8 Creatinine 0.9 Est GFR (CKD-EPI)AfAm 107.97 Est GFR (CKD-EPI)NonAf 93.16 Random Glucose 87 Calcium 8.2 L Phosphorus 2.1 L Magnesium 1.8 Total Bilirubin 0.9 AST 27 ALT 22 Alkaline Phosphatase 53 Total Protein 5.7 L Albumin 3.2 L CXR results reviewed ASSESSMENT AND PLAN: 59 yom with PMHx of CAD s/p ID/PCI x3 in 09/2018, Depression, low back pain with L4-L5 intervertebral disc disorder with associated spondylosis, spinal stenosis and segmental instability s/p spinal surgery. -L4-L5 intervertebral disc disorder with associated spondylosis, spinal stenosis and segmental instability s/p L4 bilateral laminectomy/L4-L5 bilateral facetectomies/L4-L5 posterior instrumentation/L4-L5 posterolateral arthrodesis/ Bone autograft/Bone allograft/Stem cell aspirate autograft/Complex wound closure (15cm) on 10/01/2019 -Leucocytosis, suspect stress induced, monitor for infection -Fevers -CAD s/p ID/PCI x 3 in 09/2018 -Depression -HTN -HLD Plan: Fall overnight, Dr. Mcgowan notifed, no new concerns or intervention. Monitor. D/c oxycodone. pain control with acetaminophen/tramadol Fall precautions, patient advised to ask for assistance while getting up. Fevers noted. CXR neg. Blood cx/urine studies. Encourage incentive spirometry. Monitor for now. Pain control/DVTPPX/wound care/ASA resumption per Dr. Mcgowan. Continue Brillilanta per Dr. Mcgowan/outpatient Cardiology recs. Continue statin/lasix/losartan/metoprolol/spironolactone. Fernandez d/karla PT eval/Incentive spirometry. Patient interested in rehab. Discuss with social work Dispo plans on hold given fevers. SNF vs home with services when improved.
[2019-10-03 15:24] LABS: PH,URINE 7.5 (5.0-8.0); URINE APPEARANCE CLEAR; URINE BILIRUBIN NEGATIVE (NEGATIVE); URINE COLOR YELLOW; URINE GLUCOSE (UA) NEGATIVE (NEGATIVE); URINE KETONE NEGATIVE (NEGATIVE); URINE LEUK ESTERASE NEGATIVE (NEGATIVE); URINE NITRITE NEGATIVE (NEGATIVE); URINE PROTEIN NEGATIVE (NEGATIVE); URINE UROBILINOGEN 0.2 mg/dL (0.2-1.0)
[2019-10-03] MEDS: ATORVASTATIN CA 20 MG TABLET (FP) PO SCH (21:01)
[2019-10-03] MEDS: LOSARTAN POTASSIUM 25 MG TABLET PO SCH (21:01)
[2019-10-03] MEDS: SENNOSIDES 8.6MG TABLET (FP) PO SCH (21:02)
[2019-10-03] MEDS: ACETAMINOPHEN 325 MG TABLET (FP) PO PRN (23:08)
[2019-10-04] MEDS: traMADol HCL 50 MG TABLET PO PRN ×4 (01:54→22:39)
[2019-10-04] MEDS: GABAPENTIN 400 MG CAPSULE (FP) PO SCH ×3 (05:29→21:03)
[2019-10-04 07:52] LABS: BASO % 0.5 % (0-2.0); EOS % 0.6 % (0-4.5); HEMATOCRIT 36.2 % (35.4-49); HEMOGLOBIN 12.6 GM/dL (11.7-16.9); LYMPH % 14.6 % (8-40); MCHC 34.7 g/dl (32.0-35.9); MEAN CELL VOLUME 89.3 fl (80-96); MEAN PLT VOLUME 7.4 fl (7.5-11.1); MONO % 15.1 % (3.8-10.2); NEUT % 69.2 % (42.8-82.8); PLATELET COUNT 190 K/MM3 (134-434); RBC 4.06 M/mm3 (4.00-5.60); RDW 13.4 % (11.9-15.9)
[2019-10-04 08:20] LABS: ALBUMIN 3.1 g/dl (3.4-5.0); BILIRUBIN,TOTAL 1.7 mg/dL (0.2-1); BLOOD UREA NITROGEN 12.9 mg/dL (7-18); CALCIUM 8.7 mg/dL (8.5-10.1); CREATININE 0.9 mg/dL (0.55-1.3); MAGNESIUM 2.3 mg/dL (1.8-2.4); PHOSPHOROUS 2.3 mg/dL (2.5-4.9); POTASSIUM 3.6 mmol/L (3.5-5.1)
--- NOTE | 2019-10-04 09:06 | PN ---
Physical Exam: SUBJECTIVE: Patient seen and examined. Pt spiked another fever of 102.6 overnight. Pt no longer feels confusion. Endorses back and leg pain s/p surgery. Also endorses burning and pain with urination. Tolerating diet well but no bowel movements. OBJECTIVE: Vital Signs Period Temp Pulse Resp BP Sys/Sharma Pulse Ox Last 24 Hr 99.1 F-102.6 F 80-98 20-20 104-140/59-77 98 GENERAL: The patient is awake, alert, and fully oriented, in no acute distress. HEAD: Normal with no signs of trauma. EYES: PERRL, extraocular movements intact, sclera anicteric, conjunctiva clear. No ptosis. ENT: Ears normal, nares patent, oropharynx clear without exudates, moist mucous membranes. NECK: Trachea midline, full range of motion, supple. LUNGS: Breath sounds equal, clear to auscultation bilaterally, no wheezes, no crackles, no accessory muscle use. HEART: Regular rate and rhythm, S1, S2 without murmur, rub or gallop. ABDOMEN: Soft, nontender, nondistended, normoactive bowel sounds, no guarding, no rebound, no hepatosplenomegaly, no masses. EXTREMITIES: 2+ pulses, warm, well-perfused, no edema. 4/5 strength BL 2/2 pain NEUROLOGICAL: Cranial nerves II through XII grossly intact. Normal speech, gait not observed. PSYCH: Normal mood, normal affect. SKIN: Warm, dry, normal turgor, no rashes or lesions noted. Surgical dressing clean, dry, intact. No bleeding or purulent discharge Laboratory Results - last 24 hr CBC, BMP 10/04/19 07:10 10/04/19 07:10 Active Medications Acetaminophen (Tylenol -) 650 mg PO Q6H PRN PRN Reason: FEVER Last Admin: 10/03/19 23:08 Dose: 650 mg Atorvastatin Calcium (Lipitor -) 20 mg PO HS [facility] Last Admin: 10/03/19 21:01 Dose: 20 mg Diazepam (Valium -) 10 mg PO Q6H PRN PRN Reason: MUSCLE SPASMS Stop: 10/04/19 13:18 Last Admin: 10/03/19 21:05 Dose: 10 mg Docusate Sodium (Colace -) 100 mg PO TID [facility] Duloxetine HCl (Cymbalta -) 60 mg PO DAILY [facility] Last Admin: 10/03/19 10:50 Dose: 60 mg Fentanyl (Sublimaze Injection -) 50 mcg IVPUSH [id number] PRN PRN Reason: PAIN-PACU ORDER X 4 DOSES ONLY Furosemide (Lasix -) 20 mg PO DAILY [facility] Last Admin: 10/03/19 10:50 Dose: 20 mg Gabapentin (Neurontin -) 800 mg PO TID [facility] Last Admin: 10/04/19 05:29 Dose: 800 mg Losartan Potassium (Cozaar -) 25 mg PO HS [facility] Last Admin: 10/03/19 21:01 Dose: 25 mg Metoprolol Tartrate (Lopressor -) 25 mg PO BID [facility] Last Admin: 10/03/19 21:02 Dose: 25 mg Ondansetron HCl (Zofran Injection) 4 mg IVPUSH Q6H PRN PRN Reason: NAUSEA AND/OR VOMITING Polyethylene Glycol (Miralax (For Daily Use) -) 17 gm PO DAILY [facility] Senna (Senna -) 1 tab PO [facility] Last Admin: 10/03/19 21:02 Dose: 1 tab Spironolactone (Aldactone -) 25 mg PO DAILY [facility] Last Admin: 10/03/19 10:50 Dose: 25 mg Ticagrelor (Brilinta -) 90 mg PO BID [facility] Last Admin: 10/03/19 21:01 Dose: 90 mg Tramadol HCl (Ultram -) 50 mg PO Q6H PRN PRN Reason: PAIN LEVEL 6-10 Last Admin: 10/04/19 08:37 Dose: 50 mg ASSESSMENT/PLAN: Patient is a 59 year old male with PMH of CAD (s/p 3 stents on 09/2018), depression presents in the ICU for post-op care s/p L4 b/l laminectomies, L4/L5 facetectomies, L4-L5 posterior instrumental spinal fusion, POD #2 #S/p L4-L5 laminectomies, facetectomies, posterior instrumental spinal fusion, POD#3 Pain control: Ultram 50mg Q6, valium 10mg Q6H, neurontin 800mg TID. D/c'ed oxy PT eval: ambulating well with rolling walker, minimal pain WBAT B/L LE. No bending, lifting (>5 lbs), or twisting for 9-12 months. Incentive spirometry Pain control per anesthesia Zofran PRN for nausea Mcghee d/c'ed #Fever 102.6 Confusion and lethargy resolved Pt endorses pain and burning with urination Likely 2/2 pain meds vs mcghee trauma Pelvic US: several small prostatic calcifications CT head: no acute pathology CXR: no acute pathology UA: neg F/u blood and urine cx If fevers persists overnight, will consult ID #CAD (s/p 3 stent placement) Cont home meds: Lipitor 20mg, Losartan 25mg, Spironolactone 25mg, Metoprolol 25mg BID, Ticagrelor 90mg BID #Depression Cont home med: Duloxetine 60mg #DVT ppx SCDs #FEN No fluids Cholesterol/Fat controlled diet #Dispo Monitor on med-surg D/c to rehab Visit type - Emergency Visit Emergency Visit: No - New Patient This patient is new to me today: No - Critical Care Critical Care patient: No ATTENDING PHYSICIAN STATEMENT I saw and evaluated the patient. I reviewed the resident's note and discussed the case with the resident. I agree with the resident's findings and plan as documented. SUBJECTIVE: OBJECTIVE: ASSESSMENT AND PLAN:
[2019-10-04] MEDS: ACETAMINOPHEN 325 MG TABLET (FP) PO PRN ×2 (09:23→15:55)
[2019-10-04] MEDS ORDERED: PT OWN MED DRAWER 7, Y5N ONE ×2 (09:26→22:35)
[2019-10-04] MEDS: METOPROLOL TARTRATE 25 MG TABLET (FP) PO SCH ×2 (09:29→21:03)
[2019-10-04] MEDS: FUROSEMIDE 20 MG TABLET (FP) PO SCH (09:29)
[2019-10-04] MEDS: DULoxetine HCL 30 MG CAPSULE.DR PO SCH (09:29)
[2019-10-04] MEDS: TICAGRELOR 90 MG TABLET PO SCH ×2 (09:29→22:39)
[2019-10-04] MEDS: SPIRONOLACTONE 25 MG TABLET (FP) PO SCH (09:29)
[2019-10-04] MEDS: POLYETHYLENE GLYCOL 3350 119 GM BTL PO SCH (09:29)
--- NOTE | 2019-10-04 10:27 | PN ---
Teaching Attending Note Name of Resident: Cintia Adame ATTENDING PHYSICIAN STATEMENT I saw and evaluated the patient. I reviewed the resident's note and discussed the case with the resident. I agree with the resident's findings and plan as documented with exceptions below. SUBJECTIVE: Patient seen and examined. back and thigh pain overall unchanged, no new symptoms. Denies any cough, dyspnea, nausea, vomiting, abdominal pain or diarrhea. reports some dysuria and having to wait a while to urinate. OBJECTIVE: Vital Signs Period Temp Pulse Resp BP Sys/Sharma Pulse Ox Last 24 Hr 99.1 F-102.6 F 80-100 18-20 104-140/59-77 98 Intake & Output 10/01/19 10/02/19 10/03/19 10/04/19 23:59 23:59 23:59 23:59 Intake Total 1975 2170 1100 350 Output Total 1000 4600 2600 Balance 975 -2430 -1500 350 Weight 240 lb 266 lb 12.8 oz 254 lb 1.6 oz 246 lb General: sitting at edge of bed, no acute distress Chest: CTAB, no rales or wheezing Abdomen:soft, NT, nD, no suprapubic or CVA tenderness Extremities: no edema Musculoskeletal :clean back dressing, no surrounding erythema/swelling or discharge noted, LE power 5/5, sensation intact and symmetric to light touch Home Medications Medication Instructions Recorded Aspirin [Aspirin EC] 81 mg PO DAILY 09/28/19 Cyclobenzaprine HCl 10 mg PO BID 09/28/19 Duloxetine HCl 60 mg PO DAILY 09/28/19 Furosemide 20 mg PO DAILY 09/28/19 Gabapentin 800 mg PO TID 09/28/19 Losartan Potassium 25 mg PO HS 09/28/19 Metoprolol Tartrate 25 mg PO BID 09/28/19 Spironolactone 25 mg PO DAILY 09/28/19 Ticagrelor [Brilinta] 90 mg PO BID 09/28/19 Acetaminophen [Tylenol -] 500 mg PO PRN 10/01/19 Atorvastatin Ca [Lipitor] 1 tab PO HS 10/01/19 Active Medications Acetaminophen (Tylenol -) 650 mg PO Q6H PRN PRN Reason: FEVER Last Admin: 10/04/19 09:23 Dose: 650 mg Atorvastatin Calcium (Lipitor -) 20 mg PO HS [facility] Last Admin: 10/03/19 21:01 Dose: 20 mg Diazepam (Valium -) 10 mg PO Q6H PRN PRN Reason: MUSCLE SPASMS Stop: 10/04/19 13:18 Last Admin: 10/03/19 21:05 Dose: 10 mg Docusate Sodium (Colace -) 100 mg PO TID [facility] Duloxetine HCl (Cymbalta -) 60 mg PO DAILY [facility] Last Admin: 10/04/19 09:29 Dose: 60 mg Fentanyl (Sublimaze Injection -) 50 mcg IVPUSH [id number] PRN PRN Reason: PAIN-PACU ORDER X 4 DOSES ONLY Furosemide (Lasix -) 20 mg PO DAILY [facility] Last Admin: 10/04/19 09:29 Dose: 20 mg Gabapentin (Neurontin -) 800 mg PO TID [facility] Last Admin: 10/04/19 05:29 Dose: 800 mg Losartan Potassium (Cozaar -) 25 mg PO HS [facility] Last Admin: 10/03/19 21:01 Dose: 25 mg Metoprolol Tartrate (Lopressor -) 25 mg PO BID [facility] Last Admin: 10/04/19 09:29 Dose: 25 mg Ondansetron HCl (Zofran Injection) 4 mg IVPUSH Q6H PRN PRN Reason: NAUSEA AND/OR VOMITING Polyethylene Glycol (Miralax (For Daily Use) -) 17 gm PO DAILY [facility] Last Admin: 10/04/19 09:29 Dose: 17 gm Potassium Phos/Sodium Phos (Phos-Nak Packet -) 2 packet PO BID [facility] Stop: 10/05/19 22:01 Senna (Senna -) 1 tab PO [facility] Last Admin: 10/03/19 21:02 Dose: 1 tab Spironolactone (Aldactone -) 25 mg PO DAILY [facility] Last Admin: 10/04/19 09:29 Dose: 25 mg Ticagrelor (Brilinta -) 90 mg PO BID [facility] Last Admin: 10/04/19 09:29 Dose: 90 mg Tramadol HCl (Ultram -) 50 mg PO Q6H PRN PRN Reason: PAIN LEVEL 6-10 Last Admin: 10/04/19 08:37 Dose: 50 mg ASSESSMENT AND PLAN: 59 yom with PMHx of CAD s/p [place]/PCI x3 in 09/2018, Depression, low back pain with L4-L5 intervertebral disc disorder with associated spondylosis, spinal stenosis and segmental instability s/p spinal surgery. -SIRS -L4-L5 intervertebral disc disorder with associated spondylosis, spinal stenosis and segmental instability s/p L4 bilateral laminectomy/L4-L5 bilateral facetectomies/L4-L5 posterior instrumentation/L4-L5 posterolateral arthrodesis/ Bone autograft/Bone allograft/Stem cell aspirate autograft/Complex wound closure (15cm) on 10/01/2019 -Leucocytosis, suspect stress induced, improved -Fall on 10/03/2019 _transient AMS, suspect toxic metabolic encephalopathy from fevers/narcotics, CT head neg. -Dysuria/Difficulty starting urination, r/o mcghee trauma/underlying BPH. -CAD s/p NC/PCI x 3 in 09/2018 -Depression -HTN -HLD Plan: Fevers. CXR neg. Urinary symptoms but neg ua/urine cultures. Follow up blood cx. Dr. Mcgowan aware of the fevers. Encourage incentive spirometry/ambulation. ID input if persistent fevers. Check pelvic ultrasound. Flomax trial. Fall precautions, patient advised to ask for assistance while getting up. Pain control/DVTPPX/wound care/ASA resumption per Dr. Mcgowan. Continue Brillilanta per Dr. Mcgowan/outpatient Cardiology recs. Continue statin/lasix/losartan/metoprolol/spironolactone. Mcghee d/karla Ongoing PT. Patient interested in rehab. Social work input noted. Dispo plans on hold given fevers. Discussed with patient.
[2019-10-04] MEDS: NAPH,MB-DB/K PH,MBDB POWDER PACKET PO SCH ×2 (10:45→21:03)
[2019-10-04 13:24] LABS: BILIRUBIN,DIRECT 0.4 mg/dL (0.0-0.2)
[2019-10-04] MEDS: DOCUSATE SODIUM 100 MG CAPSULE (FP) PO SCH ×2 (14:00→21:03)
[2019-10-04] MEDS ORDERED: BISACODYL 10 MG SUPP.RECT RC ONE (18:45)
[2019-10-04] MEDS: SENNOSIDES 8.6MG TABLET (FP) PO SCH (21:03)
[2019-10-04] MEDS: ATORVASTATIN CA 20 MG TABLET (FP) PO SCH (21:03)
[2019-10-04] MEDS ORDERED: TAMSULOSIN HCL 0.4 MG CAP PO SCH (22:00)
[2019-10-04] MEDS: LOSARTAN POTASSIUM 25 MG TABLET PO SCH (22:39)
[2019-10-05] MEDS: ACETAMINOPHEN 325 MG TABLET (FP) PO PRN ×3 (02:44→21:29)
[2019-10-05] MEDS: GABAPENTIN 400 MG CAPSULE (FP) PO SCH ×3 (05:50→21:28)
[2019-10-05] MEDS: DOCUSATE SODIUM 100 MG CAPSULE (FP) PO SCH ×3 (05:50→21:29)
[2019-10-05] MEDS: traMADol HCL 50 MG TABLET PO PRN ×3 (05:50→21:26)
[2019-10-05 08:15] LABS: HEMOGLOBIN 12.7 GM/dL (11.7-16.9); MCH 31.4 pg (25.7-33.7); MCHC 35.3 g/dl (32.0-35.9); MEAN CELL VOLUME 89.2 fl (80-96); MEAN PLT VOLUME 7.6 fl (7.5-11.1); PLATELET COUNT 195 K/MM3 (134-434); RBC 4.04 M/mm3 (4.00-5.60); RDW 13.1 % (11.9-15.9); WHITE BLOOD COUNT 10.4 K/mm3 (4.0-10.0)
[2019-10-05 08:33] LABS: BLOOD UREA NITROGEN 15.7 mg/dL (7-18); CALCIUM 8.3 mg/dL (8.5-10.1); POTASSIUM 3.7 mmol/L (3.5-5.1)
[2019-10-05] MEDS ORDERED: PT OWN MED DRAWER 7, Y5N ONE (11:53)
--- NOTE | 2019-10-05 11:57 | PN ---
Physical Exam: SUBJECTIVE: Patient seen and examined. Pt reports that he fell while voiding this am. He was straining to urinate and fell backwards against the door. Did not hit head or LOC. No preceding chest pain, SOB, palpitations, lightheadedness , or dizziness. OBJECTIVE: Vital Signs Period Temp Pulse Resp BP Sys/Sharma Pulse Ox Last 24 Hr 97.6 F-99.8 F 73-94 18-22 107-146/53-88 GENERAL: The patient is awake, alert, and fully oriented, in no acute distress. HEAD: Normal with no signs of trauma. EYES: PERRL, extraocular movements intact, sclera anicteric, conjunctiva clear. No ptosis. ENT: Ears normal, nares patent, oropharynx clear without exudates, moist mucous membranes. NECK: Trachea midline, full range of motion, supple. LUNGS: Breath sounds equal, clear to auscultation bilaterally, no wheezes, no crackles, no accessory muscle use. HEART: Regular rate and rhythm, S1, S2 without murmur, rub or gallop. ABDOMEN: Soft, nontender, nondistended, normoactive bowel sounds, no guarding, no rebound, no hepatosplenomegaly, no masses. EXTREMITIES: 2+ pulses, warm, well-perfused, no edema. 4/5 strength BL 2/2 pain NEUROLOGICAL: Cranial nerves II through XII grossly intact. Normal speech, gait not observed. PSYCH: Normal mood, normal affect. SKIN: Warm, dry, normal turgor, no rashes or lesions noted. Surgical dressing clean, dry, intact. No bleeding or purulent discharge Laboratory Results - last 24 hr 10/04/19 10/05/19 10/05/19 07:10 07:10 07:10 WBC 10.4 H RBC 4.04 Hgb 12.7 Hct 36.0 MCV 89.2 MCH 31.4 MCHC 35.3 RDW 13.1 Plt Count 195 MPV 7.6 Sodium 136 136 Potassium 3.6 3.7 Chloride 101 100 Carbon Dioxide 29 30 Anion Gap 6 L 5 L BUN 12.9 15.7 Creatinine 0.9 1.0 Est GFR (CKD-EPI)AfAm 107.97 95.06 Est GFR (CKD-EPI)NonAf 93.16 82.02 Random Glucose 100 88 Calcium 8.7 8.3 L Phosphorus 2.3 L Magnesium 2.3 Total Bilirubin 1.7 H Direct Bilirubin 0.4 H AST 26 ALT 22 Alkaline Phosphatase 54 Total Protein 6.0 L Albumin 3.1 L Active Medications Acetaminophen (Tylenol -) 650 mg PO Q6H PRN PRN Reason: FEVER Last Admin: 10/05/19 02:44 Dose: 650 mg Atorvastatin Calcium (Lipitor -) 20 mg PO [facility] Last Admin: 10/04/19 21:03 Dose: 20 mg Docusate Sodium (Colace -) 100 mg PO TID [facility] Last Admin: 10/05/19 05:50 Dose: 100 mg Duloxetine HCl (Cymbalta -) 60 mg PO DAILY [facility] Last Admin: 10/04/19 09:29 Dose: 60 mg Fentanyl (Sublimaze Injection -) 50 mcg IVPUSH [id number] PRN PRN Reason: PAIN-PACU ORDER X 4 DOSES ONLY Furosemide (Lasix -) 20 mg PO DAILY [facility] Last Admin: 10/04/19 09:29 Dose: 20 mg Gabapentin (Neurontin -) 800 mg PO TID [facility] Last Admin: 10/05/19 05:50 Dose: 800 mg Losartan Potassium (Cozaar -) 25 mg PO [facility] Last Admin: 10/04/19 22:39 Dose: 25 mg Metoprolol Tartrate (Lopressor -) 25 mg PO BID [facility] Last Admin: 10/04/19 21:03 Dose: 25 mg Ondansetron HCl (Zofran Injection) 4 mg IVPUSH Q6H PRN PRN Reason: NAUSEA AND/OR VOMITING Polyethylene Glycol (Miralax (For Daily Use) -) 17 gm PO DAILY [facility] Last Admin: 10/04/19 09:29 Dose: 17 gm Potassium Phos/Sodium Phos (Phos-Nak Packet -) 2 packet PO BID [facility] Stop: 10/05/19 22:01 Last Admin: 10/04/19 21:03 Dose: 2 packet Senna (Senna -) 1 tab PO [facility] Last Admin: 10/04/19 21:03 Dose: 1 tab Spironolactone (Aldactone -) 25 mg PO DAILY [facility] Last Admin: 10/04/19 09:29 Dose: 25 mg Ticagrelor (Brilinta -) 90 mg PO BID [facility] Last Admin: 10/04/19 22:39 Dose: 90 mg Tramadol HCl (Ultram -) 50 mg PO Q6H PRN PRN Reason: PAIN LEVEL 6-10 Last Admin: 10/05/19 05:50 Dose: 50 mg ASSESSMENT/PLAN: Patient is a 59 year old male with PMH of CAD (s/p 3 stents on 09/2018), depression presents in the ICU for post-op care s/p L4 b/l laminectomies, L4/L5 facetectomies, L4-L5 posterior instrumental spinal fusion, POD #4 #S/p L4-L5 laminectomies, facetectomies, posterior instrumental spinal fusion, POD#4 Pain control: Ultram 50mg Q6, valium 10mg Q6H, neurontin 800mg TID. D/c'ed oxy PT eval: ambulating well with rolling walker, minimal pain WBAT B/L LE. No bending, lifting (>5 lbs), or twisting for 9-12 months. Incentive spirometry Pain control per anesthesia Zofran PRN for nausea Mcghee d/c'ed #Vasovagal syncope Pt was started on flomax yesterday for uriary symptoms. Likely cause of fall this am Orthostatics neg EKG: NSR Dr. Mcgowan aware, no intervention recommended #Fevers - resolved Confusion and lethargy resolved Pt has been afebrile x24 hours Pt endorses pain and burning with urination Likely 2/2 pain meds vs mcghee trauma Pelvic US: several small prostatic calcifications CT head: no acute pathology CXR: no acute pathology UA: neg F/u blood and urine cx #CAD (s/p 3 stent placement) Cont home meds: Lipitor 20mg, Losartan 25mg, Spironolactone 25mg, Metoprolol 25mg BID, Ticagrelor 90mg BID #Depression Cont home med: Duloxetine 60mg #DVT ppx SCDs #FEN No fluids Cholesterol/Fat controlled diet #Dispo Monitor on med-surg D/c to rehab Visit type - Emergency Visit Emergency Visit: No - New Patient This patient is new to me today: No - Critical Care Critical Care patient: No ATTENDING PHYSICIAN STATEMENT I saw and evaluated the patient. I reviewed the resident's note and discussed the case with the resident. I agree with the resident's findings and plan as documented. SUBJECTIVE: OBJECTIVE: ASSESSMENT AND PLAN:
[2019-10-05] MEDS: NAPH,MB-DB/K PH,MBDB POWDER PACKET PO SCH ×2 (12:17→21:29)
[2019-10-05] MEDS: METOPROLOL TARTRATE 25 MG TABLET (FP) PO SCH ×2 (12:18→21:26)
[2019-10-05] MEDS: FUROSEMIDE 20 MG TABLET (FP) PO SCH (12:18)
[2019-10-05] MEDS: DULoxetine HCL 30 MG CAPSULE.DR PO SCH (12:18)
[2019-10-05] MEDS: SPIRONOLACTONE 25 MG TABLET (FP) PO SCH (12:18)
[2019-10-05] MEDS: POLYETHYLENE GLYCOL 3350 119 GM BTL PO SCH (12:19)
[2019-10-05] MEDS: TICAGRELOR 90 MG TABLET PO SCH ×2 (12:19→21:26)
--- NOTE | 2019-10-05 13:11 | PN ---
Teaching Attending Note Name of Resident: Cintia Adame ATTENDING PHYSICIAN STATEMENT I saw and evaluated the patient. I reviewed the resident's note and discussed the case with the resident. I agree with the resident's findings and plan as documented with exceptions below. SUBJECTIVE: Patient seen and examined, reports went up to go to the bathroom to urinate, strained, felt dizzy and reports falling on his back with worsening pain, no new leg weakness/tingling/numbness noted. OBJECTIVE: Vital Signs Period Temp Pulse Resp BP Sys/Sharma Pulse Ox Last 24 Hr 97.6 F-99.8 F 73-94 18-22 107-146/53-88 Intake & Output 10/02/19 10/03/19 10/04/19 10/05/19 23:59 23:59 23:59 23:59 Intake Total 2170 1100 700 Output Total 4600 2600 Balance -2430 -1500 700 Weight 266 lb 12.8 oz 254 lb 1.6 oz 246 lb General: being assisted to bathroom, standing up, no acute distress Neck: soft, supple Chest: CTAB, no rales or wheezing Abdomen:Soft, NT, ND Extremities: no edema, power 5/5 Back: dressing clean Home Medications Medication Instructions Recorded Aspirin [Aspirin EC] 81 mg PO DAILY 09/28/19 Cyclobenzaprine HCl 10 mg PO BID 09/28/19 Duloxetine HCl 60 mg PO DAILY 09/28/19 Furosemide 20 mg PO DAILY 09/28/19 Gabapentin 800 mg PO TID 09/28/19 Losartan Potassium 25 mg PO HS 09/28/19 Metoprolol Tartrate 25 mg PO BID 09/28/19 Spironolactone 25 mg PO DAILY 09/28/19 Ticagrelor [Brilinta] 90 mg PO BID 09/28/19 Acetaminophen [Tylenol -] 500 mg PO PRN 10/01/19 Atorvastatin Ca [Lipitor] 1 tab PO HS 10/01/19 Active Medications Acetaminophen (Tylenol -) 650 mg PO Q6H PRN PRN Reason: FEVER Last Admin: 10/05/19 12:25 Dose: 650 mg Atorvastatin Calcium (Lipitor -) 20 mg PO HS [facility] Last Admin: 10/04/19 21:03 Dose: 20 mg Docusate Sodium (Colace -) 100 mg PO TID [facility] Last Admin: 10/05/19 05:50 Dose: 100 mg Duloxetine HCl (Cymbalta -) 60 mg PO DAILY [facility] Last Admin: 10/05/19 12:18 Dose: 60 mg Fentanyl (Sublimaze Injection -) 50 mcg IVPUSH [id number] PRN PRN Reason: PAIN-PACU ORDER X 4 DOSES ONLY Furosemide (Lasix -) 20 mg PO DAILY [facility] Last Admin: 10/05/19 12:18 Dose: 20 mg Gabapentin (Neurontin -) 800 mg PO TID [facility] Last Admin: 10/05/19 05:50 Dose: 800 mg Losartan Potassium (Cozaar -) 25 mg PO HS [facility] Last Admin: 10/04/19 22:39 Dose: 25 mg Metoprolol Tartrate (Lopressor -) 25 mg PO BID [facility] Last Admin: 10/05/19 12:18 Dose: 25 mg Ondansetron HCl (Zofran Injection) 4 mg IVPUSH Q6H PRN PRN Reason: NAUSEA AND/OR VOMITING Polyethylene Glycol (Miralax (For Daily Use) -) 17 gm PO DAILY [facility] Last Admin: 10/05/19 12:19 Dose: Not Given Potassium Phos/Sodium Phos (Phos-Nak Packet -) 2 packet PO BID [facility] Stop: 10/05/19 22:01 Last Admin: 10/05/19 12:17 Dose: 2 packet Senna (Senna -) 1 tab PO [facility] Last Admin: 10/04/19 21:03 Dose: 1 tab Spironolactone (Aldactone -) 25 mg PO DAILY [facility] Last Admin: 10/05/19 12:18 Dose: 25 mg Ticagrelor (Brilinta -) 90 mg PO BID [facility] Last Admin: 10/05/19 12:19 Dose: 90 mg Tramadol HCl (Ultram -) 50 mg PO Q6H PRN PRN Reason: PAIN LEVEL 6-10 Last Admin: 10/05/19 12:25 Dose: 50 mg Laboratory Results - last 24 hr 10/05/19 10/05/19 07:10 07:10 WBC 10.4 H RBC 4.04 Hgb 12.7 Hct 36.0 MCV 89.2 MCH 31.4 MCHC 35.3 RDW 13.1 Plt Count 195 MPV 7.6 Sodium 136 Potassium 3.7 Chloride 100 Carbon Dioxide 30 Anion Gap 5 L BUN 15.7 Creatinine 1.0 Est GFR (CKD-EPI)AfAm 95.06 Est GFR (CKD-EPI)NonAf 82.02 Random Glucose 88 Calcium 8.3 L EKG NSR, inferoposterior infarct, no acute ST-T changes ASSESSMENT AND PLAN: 59 yom with PMHx of CAD s/p [place]/PCI x3 in 09/2018, Depression, low back pain with L4-L5 intervertebral disc disorder with associated spondylosis, spinal stenosis and segmental instability s/p spinal surgery. -SIRS -L4-L5 intervertebral disc disorder with associated spondylosis, spinal stenosis and segmental instability s/p L4 bilateral laminectomy/L4-L5 bilateral facetectomies/L4-L5 posterior instrumentation/L4-L5 posterolateral arthrodesis/ Bone autograft/Bone allograft/Stem cell aspirate autograft/Complex wound closure (15cm) on 10/01/2019 -Leucocytosis, suspect stress induced, improved -Fall on 10/03/2019 _transient AMS, suspect toxic metabolic encephalopathy from fevers/narcotics, CT head neg. -Dysuria/Difficulty starting urination, r/o mcghee trauma/underlying BPH. -CAD s/p MS/PCI x 3 in 09/2018 -Depression -HTN -HLD Plan: fever curve improved. reports another fall, where states fell on his back and then able to get up and get back in bed. Unwitnessed. No new concerns. Dr. Mcgowan notified, no additional recs. Reports positional dizziness. Will d/c flomax. Bladder scan. Check orthostatics. EKG noted. cardiology consulted by Dr. Mcgowan. Monitor for now. pain control tylenol/tramadol, ongonig PT. Wound care/DVTPPX per Dr. Mcgowan dispo in 24-48 hours to SNF if afebrile and no new concerns. Discussed with patient and nursing.
--- NOTE | 2019-10-05 15:40 | CON.CARD ---
Consult Consult Specialty:: Cardiology - History of Present Illness Chief Complaint: S/p back surgery History of Present Illness: This is a 59 year old male with a PMH of CAD s/p [place] and coronary stents x3 in , depression, and lower back pain since an accident in 12/2017, s/p elective spine surgery with Dr. Mcgowan on 10/01/2019. No chest pain or SOB. He was noted to have orthostatic changes. His supine BP was 119/60 mmHg and his standing BP dropped to 80 mmHg. This was after receiving Flomax last night. EKG NSR at 77 BPM with normal intervals, LAD, inferior Q-waves, and NSSTTW changes. - Alcohol/Substance Use Hx Alcohol Use: Yes (30 YRS AGO) - Smoking History Smoking history: Former smoker Have you smoked in the past 12 months: No Home Medications - Allergies Allergies/Adverse Reactions: Allergies Allergy/AdvReac Type Severity Reaction Status Date / Time Sulfa (Sulfonamide Allergy Verified 09/28/19 13:21 Antibiotics) - Home Medications Home Medications: Ambulatory Orders Aspirin [Aspirin EC] 81 mg PO DAILY 09/28/19 Cyclobenzaprine HCl 10 mg PO BID 09/28/19 Duloxetine HCl 60 mg PO DAILY 09/28/19 Furosemide 20 mg PO DAILY 09/28/19 Gabapentin 800 mg PO TID 09/28/19 Losartan Potassium 25 mg PO HS 09/28/19 Metoprolol Tartrate 25 mg PO BID 09/28/19 Spironolactone 25 mg PO DAILY 09/28/19 Ticagrelor [Brilinta] 90 mg PO BID 09/28/19 Acetaminophen [Tylenol -] 500 mg PO PRN 10/01/19 Atorvastatin Ca [Lipitor] 1 tab PO HS 10/01/19 Vital Signs: Vital Signs Temperature 98.2 F 10/05/19 12:14 Pulse Rate 78 10/05/19 12:14 Respiratory Rate 18 10/05/19 12:14 Blood Pressure 119/60 10/05/19 12:14 O2 Sat by Pulse Oximetry (%) 98 10/03/19 19:40 Constitutional: Yes: Well Nourished HENT: Yes: WNL Neck: Yes: WNL Respiratory: Yes: CTA Bilaterally Gastrointestinal: Yes: Normal Bowel Sounds Cardiovascular: Yes: Regular Rate and Rhythm Heart Sounds: Yes: S1, S2 Extremities: Yes: WNL Edema: No Neurological: Yes: Alert, Oriented - Other Data Labs, Other Data: CBC, BMP 10/05/19 07:10 10/05/19 07:10 Assessment/Plan 59 year old male with a PMH of CAD s/p [place] and coronary stents x3 in 09/2018, depression, and lower back pain since an accident in 12/2017, s/p elective spine surgery with Dr. Mcgowan on 10/01/2019. No chest pain or SOB. He was noted to have orthostatic changes. His supine BP was 119/60 mmHg and his standing BP dropped to 80 mmHg. This was after receiving Flomax last night. EKG NSR at 77 BPM with normal intervals, LAD, inferior Q-waves, and NSSTTW changes. Orthostatic hypotension Would not give Flomax or other alpha blockers Would favor subacute rehap Recommend he go from supine to standing very slowly CAD Since he is one year post stent, he do not require DAPT going forward Therefore can DC Brilinta but should continue Aspirin 81 mg PO daily (when ok from a post surgical standpoint) Continue other at home medicine Needs outpatient cardilogy follow up Home Medications Medication Instructions Recorded Aspirin [Aspirin EC] 81 mg PO DAILY 09/28/19 Cyclobenzaprine HCl 10 mg PO BID 09/28/19 Duloxetine HCl 60 mg PO DAILY 09/28/19 Furosemide 20 mg PO DAILY 09/28/19 Gabapentin 800 mg PO TID 09/28/19 Losartan Potassium 25 mg PO HS 09/28/19 Metoprolol Tartrate 25 mg PO BID 09/28/19 Spironolactone 25 mg PO DAILY 09/28/19 Ticagrelor [Brilinta] 90 mg PO BID 09/28/19 Acetaminophen [Tylenol -] 500 mg PO PRN 10/01/19 Atorvastatin Ca [Lipitor] 1 tab PO HS 10/01/19
[2019-10-05] MEDS: LOSARTAN POTASSIUM 25 MG TABLET PO SCH (21:26)
[2019-10-05] MEDS: SENNOSIDES 8.6MG TABLET (FP) PO SCH (21:28)
[2019-10-05] MEDS: ATORVASTATIN CA 20 MG TABLET (FP) PO SCH (21:28)
[2019-10-06] MEDS: ACETAMINOPHEN 325 MG TABLET (FP) PO PRN ×3 (03:50→21:55)
[2019-10-06] MEDS: traMADol HCL 50 MG TABLET PO PRN ×3 (03:51→21:53)
[2019-10-06] MEDS: DOCUSATE SODIUM 100 MG CAPSULE (FP) PO SCH ×3 (05:43→21:53)
[2019-10-06] MEDS: GABAPENTIN 400 MG CAPSULE (FP) PO SCH ×3 (05:43→21:54)
[2019-10-06 07:54] LABS: HEMATOCRIT 34.2 % (35.4-49); MCH 31.3 pg (25.7-33.7); MEAN CELL VOLUME 89.3 fl (80-96); MEAN PLT VOLUME 7.7 fl (7.5-11.1); PLATELET COUNT 203 K/MM3 (134-434); RBC 3.83 M/mm3 (4.00-5.60); RDW 13.3 % (11.9-15.9); WHITE BLOOD COUNT 8.6 K/mm3 (4.0-10.0)
[2019-10-06 08:21] LABS: BLOOD UREA NITROGEN 15.3 mg/dL (7-18); CALCIUM 8.5 mg/dL (8.5-10.1); CREATININE 0.9 mg/dL (0.55-1.3); POTASSIUM 4.2 mmol/L (3.5-5.1)
[2019-10-06] MEDS ORDERED: PT OWN MED DRAWER 7, Y5N ONE ×2 (09:16→21:50)
--- NOTE | 2019-10-06 10:05 | PN ---
Physical Exam: SUBJECTIVE: Patient seen and examined NAEON. Refused SCDs. Complains of lower back pain, but does not radiate to Legs. Denies falls, dysuria, trouble with urination. OBJECTIVE: Vital Signs Period Temp Pulse Resp BP Sys/Sharma Pulse Ox Last 24 Hr 97.4 F-99.7 F 71-96 18-20 90-128/52-80 94 GENERAL: The patient is awake, alert, and fully oriented, in no acute distress. HEAD: NC/AT. No scalp hematomas EYES: sclera anicteric, conjunctiva clear. ENT: Ears normal, nares patent, moist mucous membranes. NECK: Trachea midline, full range of motion, supple. LUNGS: Breath sounds equal, clear to auscultation bilaterally, no wheezes, no crackles, no accessory muscle use. HEART: Regular rate and rhythm, S1, S2 without murmur, rub or gallop. ABDOMEN: ND. Soft, nonTTP [id number] BACK: large iodoban back dressing overlying dry gauze, no strikethrough or weeping EXTREMITIES: 2+ pulses, warm, well-perfused, no edema. NEUROLOGICAL: Normal speech, gait not observed. 5/5 dorsiflexion and plantarflexion PSYCH: Normal mood, normal affect. SKIN: Warm, dry, normal turgor, no rashes or lesions noted Laboratory Results - last 24 hr 10/06/19 10/06/19 06:59 06:59 WBC 8.6 RBC 3.83 L Hgb 12.0 Hct 34.2 L MCV 89.3 MCH 31.3 MCHC 35.0 RDW 13.3 Plt Count 203 MPV 7.7 Sodium 137 Potassium 4.2 Chloride 100 Carbon Dioxide 31 Anion Gap 5 L BUN 15.3 Creatinine 0.9 Est GFR (CKD-EPI)AfAm 107.97 Est GFR (CKD-EPI)NonAf 93.16 Random Glucose 86 Calcium 8.5 Active Medications Generic Name Dose Route Start Last Admin Trade Name Freq PRN Reason Stop Dose Admin Acetaminophen 650 mg 10/03/19 15:10 10/06/19 03:50 Tylenol - PO 650 mg Q6H PRN Administration FEVER Atorvastatin Calcium 20 mg 10/03/19 22:00 10/05/19 21:28 Lipitor - PO 20 mg HS CIRA Administration Docusate Sodium 100 mg 10/04/19 14:00 10/06/19 05:43 Colace - PO 100 mg TID CIRA Administration Duloxetine HCl 60 mg 10/03/19 10:00 10/05/19 12:18 Cymbalta - PO 60 mg DAILY CIRA Administration Fentanyl 50 mcg 10/03/19 02:59 Sublimaze Injection - IVPUSH [id number] PRN PAIN-PACU ORDER X 4 DOSES ONLY Furosemide 20 mg 10/03/19 10:00 10/05/19 12:18 Lasix - PO 20 mg DAILY CIRA Administration Gabapentin 800 mg 10/03/19 06:00 10/06/19 05:43 Neurontin - PO 800 mg TID CIRA Administration Losartan Potassium 25 mg 10/03/19 22:00 10/05/19 21:26 Cozaar - PO 25 mg HS CIRA Administration Metoprolol Tartrate 25 mg 10/03/19 10:00 10/05/19 21:26 Lopressor - PO 25 mg BID CIRA Administration Ondansetron HCl 4 mg 10/03/19 02:59 Zofran Injection IVPUSH Q6H PRN NAUSEA AND/OR VOMITING Polyethylene Glycol 17 gm 10/04/19 10:00 10/05/19 12:19 Miralax (For Daily Use) - PO Not Given DAILY CIRA Senna 1 tab 10/03/19 22:00 10/05/19 21:28 Senna - PO 1 tab HS CIRA Administration Spironolactone 25 mg 10/03/19 10:00 10/05/19 12:18 Aldactone - PO 25 mg DAILY CIRA Administration Ticagrelor 90 mg 10/03/19 10:00 10/05/19 21:26 Brilinta - PO 90 mg BID CIRA Administration Tramadol HCl 50 mg 10/03/19 10:00 10/06/19 03:51 Ultram - PO 50 mg Q6H PRN Administration PAIN LEVEL 6-10 ASSESSMENT/PLAN: Patient is a 59 year old male with PMH of CAD (s/p 3 stents on 09/2018), depression presents in the ICU for post-op care s/p L4 b/l laminectomies, L4/L5 facetectomies, L4-L5 posterior instrumental spinal fusion, POD #5. Hospital course complicated by unwitnessed falls. CTH w/o acute pathology. Had complaint of pain with urination. US w/o bladder path, or urinary retention. Started on Flomax. Cardio eval s/p fall thought likely 2/2 to alpha-blockers, rec dc Flomax. Fevers to 102F on POD2. BCX/UCX NGTD. Fevers resolved. Currently awaiting Rehab placement. #S/p L4-L5 laminectomies, facetectomies, posterior instrumental spinal fusion, POD#5 Pain control: Ultram 50mg Q6, valium 10mg Q6H, neurontin 800mg TID. D/c'ed oxy PT eval: ambulating well with rolling walker, minimal pain WBAT B/L LE. No bending, lifting (>5 lbs), or twisting for 9-12 months. Incentive spirometry Pain control per anesthesia Zofran PRN for nausea Fernandez d/c'ed #Vasovagal syncope Pt was started on flomax on 10/04/19 for urinary symptoms. Likely cause of fall this am --Flomax dc'd Orthostatics positive EKG: NSR Dr. Mcgowan aware, no intervention recommended #Fevers - resolved Confusion and lethargy resolved Pt has been afebrile x48 hours Pt endorses pain and burning with urination --likely 2/2 traumatic Fernandez -- Resolved Pelvic US: several small prostatic calcifications CT head: no acute pathology CXR: no acute pathology UA: neg blood and urine cx(10/03/19): NGTD #CAD (s/p 3 stent placement) Cont home meds: Lipitor 20mg, Losartan 25mg, Spironolactone 25mg, Metoprolol 25mg BID, Ticagrelor 90mg BID #Depression Cont home med: Duloxetine 60mg #DVT ppx SCDs #FEN No fluids Cholesterol/Fat controlled diet #Dispo Monitor on med-surg D/c to rehab Visit type - Emergency Visit Emergency Visit: No - New Patient This patient is new to me today: No - Critical Care Critical Care patient: No ATTENDING PHYSICIAN STATEMENT I saw and evaluated the patient. I reviewed the resident's note and discussed the case with the resident. I agree with the resident's findings and plan as documented. SUBJECTIVE: OBJECTIVE: ASSESSMENT AND PLAN:
--- NOTE | 2019-10-06 10:24 | PN ---
Teaching Attending Note Name of Resident: Scott Bo ATTENDING PHYSICIAN STATEMENT I saw and evaluated the patient. I reviewed the resident's note and discussed the case with the resident. I agree with the resident's findings and plan as documented with exceptions below. SUBJECTIVE: Patient seen and examined. back pain, asking for pain medications. No new leg weakness/tingling or numbness. No further reported falls. OBJECTIVE: Vital Signs Period Temp Pulse Resp BP Sys/Sharma Pulse Ox Last 24 Hr 97.4 F-99.7 F 71-96 18-20 90-128/52-80 94 Intake & Output 10/03/19 10/04/19 10/05/19 10/06/19 23:59 23:59 23:59 23:59 Intake Total 1100 700 0 Output Total 2600 Balance -1500 700 0 Weight 254 lb 1.6 oz 246 lb General: sitting in bed in no acute distress Neck: soft, supple Chest: CTAB, no rales or wheezing Abdomen:Soft, NT Extremities: no edema, LE power 5/5 Back: back dressing clean Home Medications Medication Instructions Recorded Aspirin [Aspirin EC] 81 mg PO DAILY 09/28/19 Cyclobenzaprine HCl 10 mg PO BID 09/28/19 Duloxetine HCl 60 mg PO DAILY 09/28/19 Furosemide 20 mg PO DAILY 09/28/19 Gabapentin 800 mg PO TID 09/28/19 Losartan Potassium 25 mg PO HS 09/28/19 Metoprolol Tartrate 25 mg PO BID 09/28/19 Spironolactone 25 mg PO DAILY 09/28/19 Ticagrelor [Brilinta] 90 mg PO BID 09/28/19 Acetaminophen [Tylenol -] 500 mg PO PRN 10/01/19 Atorvastatin Ca [Lipitor] 1 tab PO HS 10/01/19 Active Medications Acetaminophen (Tylenol -) 650 mg PO Q6H PRN PRN Reason: FEVER Last Admin: 10/06/19 03:50 Dose: 650 mg Atorvastatin Calcium (Lipitor -) 20 mg PO HS [facility] Last Admin: 10/05/19 21:28 Dose: 20 mg Docusate Sodium (Colace -) 100 mg PO TID [facility] Last Admin: 10/06/19 05:43 Dose: 100 mg Duloxetine HCl (Cymbalta -) 60 mg PO DAILY [facility] Last Admin: 10/05/19 12:18 Dose: 60 mg Fentanyl (Sublimaze Injection -) 50 mcg IVPUSH [id number] PRN PRN Reason: PAIN-PACU ORDER X 4 DOSES ONLY Furosemide (Lasix -) 20 mg PO DAILY [facility] Last Admin: 10/05/19 12:18 Dose: 20 mg Gabapentin (Neurontin -) 800 mg PO TID [facility] Last Admin: 10/06/19 05:43 Dose: 800 mg Losartan Potassium (Cozaar -) 25 mg PO HS [facility] Last Admin: 10/05/19 21:26 Dose: 25 mg Metoprolol Tartrate (Lopressor -) 25 mg PO BID [facility] Last Admin: 10/05/19 21:26 Dose: 25 mg Ondansetron HCl (Zofran Injection) 4 mg IVPUSH Q6H PRN PRN Reason: NAUSEA AND/OR VOMITING Polyethylene Glycol (Miralax (For Daily Use) -) 17 gm PO DAILY [facility] Last Admin: 10/05/19 12:19 Dose: Not Given Senna (Senna -) 1 tab PO [facility] Last Admin: 10/05/19 21:28 Dose: 1 tab Spironolactone (Aldactone -) 25 mg PO DAILY [facility] Last Admin: 10/05/19 12:18 Dose: 25 mg Ticagrelor (Brilinta -) 90 mg PO BID [facility] Last Admin: 10/05/19 21:26 Dose: 90 mg Laboratory Results - last 24 hr 10/06/19 10/06/19 06:59 06:59 WBC 8.6 RBC 3.83 L Hgb 12.0 Hct 34.2 L MCV 89.3 MCH 31.3 MCHC 35.0 RDW 13.3 Plt Count 203 MPV 7.7 Sodium 137 Potassium 4.2 Chloride 100 Carbon Dioxide 31 Anion Gap 5 L BUN 15.3 Creatinine 0.9 Est GFR (CKD-EPI)AfAm 107.97 Est GFR (CKD-EPI)NonAf 93.16 Random Glucose 86 Calcium 8.5 Microbiology 10/03/19 13:45 Blood - Peripheral Venous Blood Culture - Preliminary NO GROWTH OBTAINED AFTER 48 HOURS, INCUBATION TO CONTINUE FOR 3 DAYS. 10/03/19 13:35 Blood - Peripheral Venous Blood Culture - Preliminary NO GROWTH OBTAINED AFTER 48 HOURS, INCUBATION TO CONTINUE FOR 3 DAYS. 10/03/19 13:14 Urine - Urine Clean Catch Urine Culture - Final NO GROWTH OBTAINED ASSESSMENT AND PLAN: 59 yom with PMHx of CAD s/p CA/PCI x3 in 09/2018, Depression, low back pain with L4-L5 intervertebral disc disorder with associated spondylosis, spinal stenosis and segmental instability s/p spinal surgery. -SIRS -L4-L5 intervertebral disc disorder with associated spondylosis, spinal stenosis and segmental instability s/p L4 bilateral laminectomy/L4-L5 bilateral facetectomies/L4-L5 posterior instrumentation/L4-L5 posterolateral arthrodesis/ Bone autograft/Bone allograft/Stem cell aspirate autograft/Complex wound closure (15cm) on 10/01/2019 -Leucocytosis, suspect stress induced, improved -Fall on 10/03/2019 _transient AMS, suspect toxic metabolic encephalopathy from fevers/narcotics, CT head neg. -Dysuria/Difficulty starting urination, r/o mcghee trauma/underlying BPH. -CAD s/p CA/PCI x 3 in 09/2018 -Depression -HTN -HLD Plan: Fevers improved, infectious w/u neg. Encourage ambulation/Incentive spirometry reports of positional dizziness, flomax dced, no symptoms currently cardiology input noted. Will address with dr. Mcgowan/outpatient clinical laboratory medical director if ok to transition to ASA only. on Brillinta currently. pain control tylenol/tramadol, ongonig PT. Wound care/DVTPPX per Dr. Mcgowan dispo in 24-48 hours to SNF if afebrile, no new concerns and disposition arranged. Discussed with patient and nursing.
[2019-10-06] MEDS: DULoxetine HCL 30 MG CAPSULE.DR PO SCH (11:25)
[2019-10-06] MEDS: SPIRONOLACTONE 25 MG TABLET (FP) PO SCH (11:26)
[2019-10-06] MEDS: FUROSEMIDE 20 MG TABLET (FP) PO SCH (11:26)
[2019-10-06] MEDS: METOPROLOL TARTRATE 25 MG TABLET (FP) PO SCH ×2 (11:26→21:54)
[2019-10-06] MEDS: TICAGRELOR 90 MG TABLET PO SCH ×2 (11:27→22:23)
[2019-10-06] MEDS: POLYETHYLENE GLYCOL 3350 119 GM BTL PO SCH (11:27)
--- NOTE | 2019-10-06 11:30 | EKG ---
Test Reason : Blood Pressure : / mmHG Vent. Rate : 077 BPM Atrial Rate : 077 BPM P-R Int : 160 ms QRS Dur : 100 ms QT Int : 384 ms P-R-T Axes : 036 -35 022 degrees QTc Int : 434 ms SINUS RHYTHM WITH PREMATURE ATRIAL COMPLEXES LEFT AXIS DEVIATION POSSIBLE LATERAL INFARCT , AGE UNDETERMINED INFERIOR-POSTERIOR INFARCT , AGE UNDETERMINED ABNORMAL ECG NO PREVIOUS ECGS AVAILABLE Confirmed by VIVEK CROW MD ([id number]) on 10/06/2019 11:30:29 AM Referred By: Duane Mcgowan Confirmed By:VIVEK CROW MD
[2019-10-06] MEDS ORDERED: KETOROLAC TROMETHAMINE 30 MG/1 ML VIAL IM ONE (11:45)
[2019-10-06] MEDS: ATORVASTATIN CA 20 MG TABLET (FP) PO SCH (21:52)
[2019-10-06] MEDS: SENNOSIDES 8.6MG TABLET (FP) PO SCH (21:53)
[2019-10-06] MEDS: LOSARTAN POTASSIUM 25 MG TABLET PO SCH (21:53)
[2019-10-07] MEDS: GABAPENTIN 400 MG CAPSULE (FP) PO SCH ×3 (06:29→21:21)
[2019-10-07] MEDS: DOCUSATE SODIUM 100 MG CAPSULE (FP) PO SCH ×3 (06:29→21:21)
[2019-10-07] MEDS: ACETAMINOPHEN 325 MG TABLET (FP) PO PRN ×2 (06:29→16:48)
[2019-10-07] MEDS: traMADol HCL 50 MG TABLET PO PRN ×3 (06:30→21:21)
[2019-10-07] MEDS ORDERED: PT OWN MED DRAWER 7, Y5N ONE ×2 (08:37→20:55)
[2019-10-07] MEDS: DULoxetine HCL 30 MG CAPSULE.DR PO SCH (09:01)
[2019-10-07] MEDS: TICAGRELOR 90 MG TABLET PO SCH ×2 (09:01→21:21)
[2019-10-07] MEDS: FUROSEMIDE 20 MG TABLET (FP) PO SCH (09:01)
[2019-10-07] MEDS: METOPROLOL TARTRATE 25 MG TABLET (FP) PO SCH ×2 (09:02→21:21)
[2019-10-07] MEDS: SPIRONOLACTONE 25 MG TABLET (FP) PO SCH (09:02)
[2019-10-07] MEDS: POLYETHYLENE GLYCOL 3350 119 GM BTL PO SCH (09:03)
--- NOTE | 2019-10-07 11:13 | PN ---
Physical Exam: SUBJECTIVE: Patient seen and examined, no complaints. pain controlled currently. OBJECTIVE: Vital Signs Period Temp Pulse Resp BP Sys/Sharma Pulse Ox Last 24 Hr 97.6 F-98.3 F 60-78 18-20 96-159/51-94 Intake & Output 10/04/19 10/05/19 10/06/19 10/07/19 23:59 23:59 23:59 23:59 Intake Total 700 0 280 Balance 700 0 280 Weight 246 lb 243 lb 5 oz General: sitting in bed in no acute distress Neck: soft, supple Chest: CTAB, no rales or wheezing Abdomen:Soft, NT Extremities: no edema, LE power 5/5 Back: back dressing clean Active Medications Generic Name Dose Route Start Last Admin Trade Name Freq PRN Reason Stop Dose Admin Acetaminophen 650 mg 10/03/19 15:10 10/07/19 06:29 Tylenol - PO 650 mg Q6H PRN Administration FEVER Atorvastatin Calcium 20 mg 10/03/19 22:00 10/06/19 21:52 Lipitor - PO 20 mg HS CIRA Administration Docusate Sodium 100 mg 10/04/19 14:00 10/07/19 06:29 Colace - PO 100 mg TID CIRA Administration Duloxetine HCl 60 mg 10/03/19 10:00 10/07/19 09:01 Cymbalta - PO 60 mg DAILY CIRA Administration Furosemide 20 mg 10/03/19 10:00 10/07/19 09:01 Lasix - PO 20 mg DAILY CIRA Administration Gabapentin 800 mg 10/03/19 06:00 10/07/19 06:29 Neurontin - PO 800 mg TID CIRA Administration Losartan Potassium 25 mg 10/03/19 22:00 10/06/19 21:53 Cozaar - PO 25 mg HS CIRA Administration Metoprolol Tartrate 25 mg 10/03/19 10:00 10/07/19 09:02 Lopressor - PO 25 mg BID CIRA Administration Ondansetron HCl 4 mg 10/03/19 02:59 Zofran Injection IVPUSH Q6H PRN NAUSEA AND/OR VOMITING Polyethylene Glycol 17 gm 10/04/19 10:00 10/07/19 09:03 Miralax (For Daily Use) - PO Not Given DAILY CIRA Senna 1 tab 10/03/19 22:00 10/06/19 21:53 Senna - PO 1 tab HS CIRA Administration Spironolactone 25 mg 10/03/19 10:00 10/07/19 09:02 Aldactone - PO 25 mg DAILY CIRA Administration Ticagrelor 90 mg 10/03/19 10:00 10/07/19 09:01 Brilinta - PO 90 mg BID CIRA Administration Tramadol HCl 50 mg 10/06/19 11:14 10/07/19 06:30 Ultram - PO 50 mg Q6H PRN Administration PAIN LEVEL 6-10 ASSESSMENT/PLAN: 59 yom with PMHx of CAD s/p RI/PCI x3 in 09/2018, Depression, low back pain with L4-L5 intervertebral disc disorder with associated spondylosis, spinal stenosis and segmental instability s/p spinal surgery. -SIRS -L4-L5 intervertebral disc disorder with associated spondylosis, spinal stenosis and segmental instability s/p L4 bilateral laminectomy/L4-L5 bilateral facetectomies/L4-L5 posterior instrumentation/L4-L5 posterolateral arthrodesis/ Bone autograft/Bone allograft/Stem cell aspirate autograft/Complex wound closure (15cm) on 10/01/2019 -Leucocytosis, suspect stress induced, improved -Fall on 10/03/2019 _transient AMS, suspect toxic metabolic encephalopathy from fevers/narcotics, CT head neg. -Dysuria/Difficulty starting urination, r/o mcghee trauma/underlying BPH. -CAD s/p RI/PCI x 3 in 09/2018 -Depression -HTN -HLD Plan: no further fevers, infectious w/u neg. Encourage ambulation/Incentive spirometry reports of positional dizziness, flomax dced, no symptoms currently cardiology input noted. Will address with dr. Mcgowan/outpatient wax coating machine tender if ok to transition to ASA only. on Brillinta currently. pain control tylenol/tramadol, ongonig PT. Wound care/DVTPPX per Dr. Mcgowan dispo to SNF when bed arranged, discussed with social work. Discussed with patient and nursing. Visit type - Emergency Visit Emergency Visit: No - New Patient This patient is new to me today: No - Critical Care Critical Care patient: No - Discharge Referral Referred to [facility] Med P.C.: No
--- NOTE | 2019-10-07 19:03 | PN ---
Progress Note (short form) - Note Progress Note: POD#5 Doing well Temp and vitals as per chart. C/O Incisioinal pain No leg pain Still has feelings of being unwell Just not himself Cardiac team consulted. No Arrythmia or cardiac backward or foreward failure. previous history of AK 1 year ago. Wound Dry Neuro at baseline ABD Soft B/S ok Passing flatus ASSESS Doing well following a L4/5 fusion PLAN D/c to rehab tomorrow
[2019-10-07] MEDS: SENNOSIDES 8.6MG TABLET (FP) PO SCH (21:21)
[2019-10-07] MEDS: LOSARTAN POTASSIUM 25 MG TABLET PO SCH (21:21)
[2019-10-07] MEDS: ATORVASTATIN CA 20 MG TABLET (FP) PO SCH (21:21)
[2019-10-08] MEDS: DOCUSATE SODIUM 100 MG CAPSULE (FP) PO SCH ×4 (06:39→21:18)
[2019-10-08] MEDS: GABAPENTIN 400 MG CAPSULE (FP) PO SCH ×3 (06:39→21:17)
[2019-10-08] MEDS: ACETAMINOPHEN 325 MG TABLET (FP) PO PRN (06:40)
[2019-10-08] MEDS: traMADol HCL 50 MG TABLET PO PRN ×3 (06:40→21:20)
--- NOTE | 2019-10-08 08:51 | PN ---
Progress Note (short form) - Note Progress Note: 54M s/p L4 bilateral laminectomies, bilateral L4/L5 facetectomies, L4-L5 posterior instrumented spinal fusion POD #7. Pain well controlled. Pt. denies overnight history of headaches, chest pain, shortness of breath, nausea, vomiting, chills, & sweats. (+) Voiding; (+) Flatus; (+) BM. (+) Stood in room and walked with PT yesterday. All labs and vitals reviewed. PE: AAO x 3, NAD. L-Spine: Incision, dressing C/D/I. Drain intact & in place. B/L LE M: L2-S1 intact. B/L LE S: L2-S1 2/2. A/P: 54M s/p L4 bilateral laminectomies, bilateral L4/L5 facetectomies, L4-L5 posterior instrumented spinal fusion POD #7. -Pain control: NO NSAID's. -Nursing care: fastidious avoidance of decubitus ulcers; log roll/place on wedge pillows every 2 hours; rolled up towels under the ankles to offload the heels. -DVT PPx: -Mechanical only: BRUCE's, SCD's. -Chemical: None. -Incentive spirometry q15 min. -Diet as tolerated. -PT/OT/Rehab, OOB. -WBAT B/L LE. -No bending, lifting (>5 lbs), or twisting for 9-12 months. -Care per medical hospitalist team. -Discharge planning: [facility]; call for appointment; . -Will follow. Duane Mcgowan MD (Orthopaedic Surgery).
[2019-10-08] MEDS ORDERED: PT OWN MED DRAWER 7, Y5N ONE ×2 (09:10→21:06)
[2019-10-08] MEDS: SPIRONOLACTONE 25 MG TABLET (FP) PO SCH (09:37)
[2019-10-08] MEDS: METOPROLOL TARTRATE 25 MG TABLET (FP) PO SCH ×2 (09:37→21:18)
[2019-10-08] MEDS: DULoxetine HCL 30 MG CAPSULE.DR PO SCH (09:37)
[2019-10-08] MEDS: FUROSEMIDE 20 MG TABLET (FP) PO SCH (09:37)
[2019-10-08] MEDS: POLYETHYLENE GLYCOL 3350 119 GM BTL PO SCH (09:38)
[2019-10-08] MEDS: TICAGRELOR 90 MG TABLET PO SCH ×2 (09:38→21:17)
--- NOTE | 2019-10-08 10:56 | PN ---
Teaching Attending Note Name of Resident: Cintia Adame ATTENDING PHYSICIAN STATEMENT I saw and evaluated the patient. I reviewed the resident's note and discussed the case with the resident. I agree with the resident's findings and plan as documented with exceptions below. SUBJECTIVE: Patient seen and examined. Back pain but no worsening. No new leg pain or symptoms. No further dizziness or falls. OBJECTIVE: Vital Signs Period Temp Pulse Resp BP Sys/Sharma Pulse Ox Last 24 Hr 97.5 F-98.7 F 57-72 20-20 93-131/50-73 98 Intake & Output 10/05/19 10/06/19 10/07/19 10/08/19 23:59 23:59 23:59 23:59 Intake Total 0 280 1650 500 Output Total 6 Balance 0 280 1644 500 Weight 243 lb 5 oz 244 lb 8 oz General: sitting in bed in no acute distress Neck: soft, supple Chest: CTAB, no rales or wheezing Abdomen:Soft, NT Extremities: no edema, LE power 5/5 Back: back dressing clean Home Medications Medication Instructions Recorded Aspirin [Aspirin EC] 81 mg PO DAILY 09/28/19 Cyclobenzaprine HCl 10 mg PO BID 09/28/19 Duloxetine HCl 60 mg PO DAILY 09/28/19 Furosemide 20 mg PO DAILY 09/28/19 Gabapentin 800 mg PO TID 09/28/19 Losartan Potassium 25 mg PO HS 09/28/19 Metoprolol Tartrate 25 mg PO BID 09/28/19 Spironolactone 25 mg PO DAILY 09/28/19 Ticagrelor [Brilinta] 90 mg PO BID 09/28/19 Acetaminophen [Tylenol -] 500 mg PO PRN 10/01/19 Atorvastatin Ca [Lipitor] 1 tab PO HS 10/01/19 Active Medications Acetaminophen (Tylenol -) 650 mg PO Q6H PRN PRN Reason: FEVER Last Admin: 10/08/19 06:40 Dose: 650 mg Atorvastatin Calcium (Lipitor -) 20 mg PO [facility] Last Admin: 10/07/19 21:21 Dose: 20 mg Docusate Sodium (Colace -) 100 mg PO TID [facility] Last Admin: 10/08/19 06:39 Dose: 100 mg Duloxetine HCl (Cymbalta -) 60 mg PO DAILY [facility] Last Admin: 10/08/19 09:37 Dose: 60 mg Furosemide (Lasix -) 20 mg PO DAILY [facility] Last Admin: 10/08/19 09:37 Dose: 20 mg Gabapentin (Neurontin -) 800 mg PO TID [facility] Last Admin: 10/08/19 06:39 Dose: 800 mg Losartan Potassium (Cozaar -) 25 mg PO HS [facility] Last Admin: 10/07/19 21:21 Dose: 25 mg Metoprolol Tartrate (Lopressor -) 25 mg PO BID [facility] Last Admin: 10/08/19 09:37 Dose: 25 mg Ondansetron HCl (Zofran Injection) 4 mg IVPUSH Q6H PRN PRN Reason: NAUSEA AND/OR VOMITING Polyethylene Glycol (Miralax (For Daily Use) -) 17 gm PO DAILY [facility] Last Admin: 10/08/19 09:38 Dose: Not Given Senna (Senna -) 1 tab PO HS [facility] Last Admin: 10/07/19 21:21 Dose: 1 tab Spironolactone (Aldactone -) 25 mg PO DAILY [facility] Last Admin: 10/08/19 09:37 Dose: 25 mg Ticagrelor (Brilinta -) 90 mg PO BID [facility] Last Admin: 10/08/19 09:38 Dose: 90 mg Tramadol HCl (Ultram -) 50 mg PO Q6H PRN PRN Reason: PAIN LEVEL 6-10 Last Admin: 10/08/19 06:40 Dose: 50 mg ASSESSMENT AND PLAN: 59 yom with PMHx of CAD s/p SC/PCI x3 in 09/2018, Depression, low back pain with L4-L5 intervertebral disc disorder with associated spondylosis, spinal stenosis and segmental instability s/p spinal surgery. -SIRS -L4-L5 intervertebral disc disorder with associated spondylosis, spinal stenosis and segmental instability s/p L4 bilateral laminectomy/L4-L5 bilateral facetectomies/L4-L5 posterior instrumentation/L4-L5 posterolateral arthrodesis/ Bone autograft/Bone allograft/Stem cell aspirate autograft/Complex wound closure (15cm) on 10/01/2019 -Leucocytosis, suspect stress induced, improved -Fall on 10/03/2019 _transient AMS, suspect toxic metabolic encephalopathy from fevers/narcotics, CT head neg. -Dysuria/Difficulty starting urination, r/o mcghee trauma/underlying BPH. -CAD s/p SC/PCI x 3 in 09/2018 -Depression -HTN -HLD Plan: no further fevers, infectious w/u neg. Encourage ambulation/Incentive spirometry reports of positional dizziness, flomax dced, no symptoms currently cardiology input noted. Will address with dr. Mcgowan/outpatient supervisor communications and signals if ok to transition to ASA only. on Brillinta currently. pain control tylenol/tramadol, ongonig PT. Wound care/DVTPPX per Dr. Mcgowan. No NSAIDs per Dr. Mcgowan. dispo Social work input noted, follow up for disposition arrangements. Discussed with patient.
--- NOTE | 2019-10-08 15:22 | PN ---
Physical Exam: SUBJECTIVE: Patient seen and examined. Pt voiding okay with no burning. No fevers or chills. Pain is controlled. OBJECTIVE: Vital Signs Period Temp Pulse Resp BP Sys/Sharma Pulse Ox Last 24 Hr 97.5 F-98.7 F 57-72 20-20 93-131/50-73 98 GENERAL: The patient is awake, alert, and fully oriented, in no acute distress. HEAD: Normal with no signs of trauma.. LUNGS: Breath sounds equal, clear to auscultation bilaterally, no wheezes, no crackles, no accessory muscle use. HEART: Regular rate and rhythm, S1, S2 without murmur, rub or gallop. ABDOMEN: Soft, nontender, nondistended, normoactive bowel sounds, no guarding, no rebound, no hepatosplenomegaly, no masses. EXTREMITIES: 2+ pulses, warm, well-perfused, no edema. 4/5 strength BL 2/2 pain NEUROLOGICAL: Normal speech, gait not observed. PSYCH: Normal mood, normal affect. SKIN: Warm, dry, normal turgor, no rashes or lesions noted. Surgical dressing clean, dry, intact. No bleeding or purulent discharge Active Medications Acetaminophen (Tylenol -) 650 mg PO Q6H PRN PRN Reason: FEVER Last Admin: 10/08/19 06:40 Dose: 650 mg Atorvastatin Calcium (Lipitor -) 20 mg PO HS [facility] Last Admin: 10/07/19 21:21 Dose: 20 mg Docusate Sodium (Colace -) 100 mg PO TID [facility] Last Admin: 10/08/19 13:26 Dose: Not Given Duloxetine HCl (Cymbalta -) 60 mg PO DAILY [facility] Last Admin: 10/08/19 09:37 Dose: 60 mg Furosemide (Lasix -) 20 mg PO DAILY [facility] Last Admin: 10/08/19 09:37 Dose: 20 mg Gabapentin (Neurontin -) 800 mg PO TID [facility] Last Admin: 10/08/19 13:24 Dose: 800 mg Losartan Potassium (Cozaar -) 25 mg PO HS [facility] Last Admin: 10/07/19 21:21 Dose: 25 mg Metoprolol Tartrate (Lopressor -) 25 mg PO BID [facility] Last Admin: 10/08/19 09:37 Dose: 25 mg Ondansetron HCl (Zofran Injection) 4 mg IVPUSH Q6H PRN PRN Reason: NAUSEA AND/OR VOMITING Polyethylene Glycol (Miralax (For Daily Use) -) 17 gm PO DAILY [facility] Last Admin: 10/08/19 09:38 Dose: Not Given Senna (Senna -) 1 tab PO HS [facility] Last Admin: 10/07/19 21:21 Dose: 1 tab Spironolactone (Aldactone -) 25 mg PO DAILY [facility] Last Admin: 10/08/19 09:37 Dose: 25 mg Ticagrelor (Brilinta -) 90 mg PO BID [facility] Last Admin: 10/08/19 09:38 Dose: 90 mg Tramadol HCl (Ultram -) 50 mg PO Q6H PRN PRN Reason: PAIN LEVEL 6-10 Last Admin: 10/08/19 13:23 Dose: 50 mg ASSESSMENT/PLAN: Patient is a 59 year old male with PMH of CAD (s/p 3 stents on 09/2018), depression presents in the ICU for post-op care s/p L4 b/l laminectomies, L4/L5 facetectomies, L4-L5 posterior instrumental spinal fusion, POD #4 #S/p L4-L5 laminectomies, facetectomies, posterior instrumental spinal fusion, POD#4 Pain control: Ultram 50mg Q6, valium 10mg Q6H, neurontin 800mg TID. D/c'ed oxy PT eval: ambulating well with rolling walker, minimal pain WBAT B/L LE. No bending, lifting (>5 lbs), or twisting for 9-12 months. Incentive spirometry Pain control per anesthesia Zofran PRN for nausea Mcghee d/c'ed #Fevers - resolved Confusion and lethargy resolved Pt has been afebrile x24 hours Likely 2/2 pain meds vs mcghee trauma Pelvic US: several small prostatic calcifications CT head: no acute pathology CXR: no acute pathology UA: neg Blood and urine cx: neg #CAD (s/p 3 stent placement) Cont home meds: Lipitor 20mg, Losartan 25mg, Spironolactone 25mg, Metoprolol 25mg BID, Ticagrelor 90mg BID F/u with cardio if pt needs to be on ASA and Brillinta #Depression Cont home med: Duloxetine 60mg #DVT ppx SCDs #FEN No fluids Cholesterol/Fat controlled diet Visit type - Emergency Visit Emergency Visit: No - New Patient This patient is new to me today: No - Critical Care Critical Care patient: No ATTENDING PHYSICIAN STATEMENT I saw and evaluated the patient. I reviewed the resident's note and discussed the case with the resident. I agree with the resident's findings and plan as documented. SUBJECTIVE: OBJECTIVE: ASSESSMENT AND PLAN:
[2019-10-08] MEDS: ATORVASTATIN CA 20 MG TABLET (FP) PO SCH (21:18)
[2019-10-08] MEDS: SENNOSIDES 8.6MG TABLET (FP) PO SCH (21:18)
[2019-10-08] MEDS: LOSARTAN POTASSIUM 25 MG TABLET PO SCH (21:18)
[2019-10-09] MEDS: DOCUSATE SODIUM 100 MG CAPSULE (FP) PO SCH (06:14)
[2019-10-09] MEDS: traMADol HCL 50 MG TABLET PO PRN (06:14)
[2019-10-09] MEDS: GABAPENTIN 400 MG CAPSULE (FP) PO SCH (06:14)
[2019-10-09 09:54] VITALS: BP 104/66; PULSE 67; TEMP 98.3
[2019-10-09] MEDS ORDERED: PT OWN MED DRAWER 7, Y5N ONE (10:01)
[2019-10-09] MEDS: ACETAMINOPHEN 325 MG TABLET (FP) PO PRN (10:08)
[2019-10-09] MEDS: DULoxetine HCL 30 MG CAPSULE.DR PO SCH (10:09)
[2019-10-09] MEDS: FUROSEMIDE 20 MG TABLET (FP) PO SCH (10:09)
[2019-10-09] MEDS: TICAGRELOR 90 MG TABLET PO SCH (10:09)
[2019-10-09] MEDS: SPIRONOLACTONE 25 MG TABLET (FP) PO SCH (10:09)
[2019-10-09] MEDS: METOPROLOL TARTRATE 25 MG TABLET (FP) PO SCH (10:09)
[2019-10-09] MEDS: POLYETHYLENE GLYCOL 3350 119 GM BTL PO SCH (10:09)
[2019-10-09] MEDS ORDERED: traMADol HCL 50 MG TABLET PO ONE (12:11)
--- NOTE | 2019-10-09 13:36 | DS ---
Physical Exam: SUBJECTIVE: Patient seen and examined. No acute events overnight. OBJECTIVE: Vital Signs Period Temp Pulse Resp BP Sys/Sharma Pulse Ox Last 24 Hr 97.8 F-98.3 F 60-70 18-20 98-135/63-69 98 PHYSICAL EXAM GENERAL: The patient is awake, alert, and fully oriented, in no acute distress. HEAD: Normal with no signs of trauma.. LUNGS: Breath sounds equal, clear to auscultation bilaterally, no wheezes, no crackles, no accessory muscle use. HEART: Regular rate and rhythm, S1, S2 without murmur, rub or gallop. ABDOMEN: Soft, nontender, nondistended, normoactive bowel sounds, no guarding, no rebound, no hepatosplenomegaly, no masses. EXTREMITIES: 2+ pulses, warm, well-perfused, no edema. 4/5 strength BL 2/2 pain NEUROLOGICAL: Normal speech, gait not observed. PSYCH: Normal mood, normal affect. SKIN: Warm, dry, normal turgor, no rashes or lesions noted. Surgical dressing clean, dry, intact. No bleeding or purulent discharge LABS HOSPITAL COURSE: Date of Admission:10/01/19 Patient is a 59 year old male with PMH of CAD (s/p 3 stents on 09/2018), depression who was admitted for L4 b/l laminectomies, L4/L5 facetectomies, L4- L5 posterior instrumental spinal fusion by Dr. Mcgowan on 10/01/19. Hospitalization was complicated by post-op fevers. CXR, UA, CT head, blood and urine cx were all negative for any acute pathology or signs of infection. Patient had 1 unwitnessed falls preceded by dizziness and lightheaded. This occurred after being started on Flomax for dysuria and urinary retention. Fall is likely 2/2 to orthostatic hypotension; flomax was d/c'ed and patient was advised to avoid this medication in future. He was followed daily by PT and has improved in strength and ambulation. His vitals are stable and he is clinically stable to be discharged. Pelvic US: several small prostatic calcifications CT head: no acute pathology CXR: no acute pathology Date of Discharge: 10/09/19 Minutes to complete discharge: 45 Discharge Summary Problems reviewed: Yes Reason For Visit: SPINAL STENOSIS Condition: Stable - Instructions Diet, Activity, Other Instructions: You were admitted to the hospital for spinal surgery by Dr. Mcgowan. Medications: - Take Ultram 50mg every 6 hours, as needed, for pain. Take tylenol 650mg every 6 hours, as needed, for pain. - *You are currently on Brillinta and your Aspirin has been held per Dr. Mcgowan recommendations, continue the same for now. - Resume all home medications as prescribed. Follow-up: - Please see Dr. Mcgowan in 7-[address] [facility] office for appointment; - Please see your site technician, Dr. Morales, in one week to evaluate your cardiac medications. Additional instructions from Dr. Mcgwoan: - Do not take any NSAIDs for pain. This includes Motrin/ibuprofen, Advil, Aleve. - Do not make any sudden turns, lean over, or lift anything greater than 5 pounds for 9-12 months. - Log roll/place on wedge pillows every 2 hours; rolled up towels under the ankles to offload the heels. - You are currently on Brillinta and your Aspirin has been held per Dr. Mcgowan. Please continue the current management. Advise to follow up with Dr. Mcgowan and your site technician to discuss if your Brillinta can be stopped and ASA can be resumed. Dr. Mcgowan's recommendations: -Pain control: NO NSAID's. -Nursing care: fastidious avoidance of decubitus ulcers; log roll/place on wedge pillows every 2 hours; rolled up towels under the ankles to offload the heels. -DVT PPx: -Mechanical only: BRUCE's, SCD's. -Chemical: None. -Incentive spirometry q15 min. -Diet as tolerated. -PT/OT/Rehab, OOB. -WBAT B/L LE. -No bending, lifting (>5 lbs), or twisting for 9-12 months. -Discharge planning: f/u 7-10 days [address] [facility] office; call for appointment; . Return to the emergency department if your surgical site gets red, warm, drains , or you develop a fever above 101. Referrals: MD Andrew [Other] - 1 Week Duane Mcgowan MD [Staff Physician] - 1 Week Disposition: HOME - Home Medications Comprehensive Discharge Medication List: Ambulatory Orders Cyclobenzaprine HCl 10 mg PO BID 09/28/19 Duloxetine HCl 60 mg PO DAILY 09/28/19 Furosemide 20 mg PO DAILY 09/28/19 Gabapentin 800 mg PO TID 09/28/19 Losartan Potassium 25 mg PO HS 09/28/19 Metoprolol Tartrate 25 mg PO BID 09/28/19 Spironolactone 25 mg PO DAILY 09/28/19 Ticagrelor [Brilinta -] 90 mg PO BID 09/28/19 Acetaminophen [Tylenol .Extra-Strength -] 500 mg PO PRN 10/01/19 Atorvastatin Ca [Lipitor] 1 tab PO HS 10/01/19 Acetaminophen [Tylenol .Regular Strength -] 650 mg PO Q6H PRN tablet 10/09/19 Docusate Sodium [Colace -] 100 mg PO TID capsule 10/09/19 Polyethylene Glycol 3350 [Miralax 119 gm Btl -] 17 gm PO DAILY bottle 10/09/19 Sennosides [Senna -] 1 tab PO HS tablet 10/09/19 traMADol HCL [Ultram -] 50 mg PO Q6H PRN tablet MDD 4 tablets 10/09/19 This patient is new to me today: No Emergency Visit: No Critical Care patient: No - Discharge Referral Referred to [facility] Med [facility] No ATTENDING PHYSICIAN STATEMENT I saw and evaluated the patient. I reviewed the resident's note and discussed the case with the resident. I agree with the resident's findings and plan as documented. SUBJECTIVE: OBJECTIVE: ASSESSMENT AND PLAN:
== END 2019-10-09 13:08 | disposition home or self-care (01) | DRG 304 ==
LOC: JSAMEDAYSX 06:05 → JICU 14:34 → J8W 10-02 19:14
PROVIDERS: ADMIT Orthopaedic Surgery Orthopaedic Surgery of the Spine; ATTEND Hospitalist
PROC: 0SG0071 Fusion of Lumbar Vertebral Joint with Autologous Tissue Substitute, Posterior Approach, Posterior Column, Open Approach (ICD-10-PCS; 2019-10-01)
PROC: 0QB00ZZ Excision of Lumbar Vertebra, Open Approach (ICD-10-PCS; 2019-10-01)
PROC: 07DR0ZZ Extraction of Iliac Bone Marrow, Open Approach (ICD-10-PCS; 2019-10-01)
PROC: 4A11X4G Monitoring of Peripheral Nervous Electrical Activity, Intraoperative, External Approach (ICD-10-PCS; 2019-10-01)
PROC: B01BZZZ Fluoroscopy of Spinal Cord (ICD-10-PCS; 2019-10-01)
PROC: 0SG00AJ Fusion of Lumbar Vertebral Joint with Interbody Fusion Device, Posterior Approach, Anterior Column, Open Approach (ICD-10-PCS; principal; 2019-10-01 08:00)
DX: M48.061 Spinal stenosis, lumbar region without neurogenic claudication (principal); M53.2X6 Spinal instabilities, lumbar region; I25.10 Atherosclerotic heart disease of native coronary artery without angina pectoris; F32.9 Major depressive disorder, single episode, unspecified; I10 Essential (primary) hypertension; E78.5 Hyperlipidemia, unspecified; R41.82 Altered mental status, unspecified; D72.829 Elevated white blood cell count, unspecified; T40.605A Adverse effect of unspecified narcotics, initial encounter; R50.82 Postprocedural fever; Y92.238 Other place in hospital as the place of occurrence of the external cause; G92 Toxic encephalopathy; N40.0 Benign prostatic hyperplasia without lower urinary tract symptoms; R30.0 Dysuria; I95.1 Orthostatic hypotension; W18.39XA Other fall on same level, initial encounter; Z95.5 Presence of coronary angioplasty implant and graft
CPT/HCPCS: 36415; 70450-TC; 71046-TC-FY; 72100-TC-FY; 76000-TC-FY; 76856-TC; 80048; 80053; 81003; 82248; 83735; 84100; 85025; 85027; 86850; 86891; 86900; 86901; 87040; 87086; 93005; 93010; 94010; 94760; 97116-GP; 97162-GP; J0131; J1644